=== PATIENT | male | born 1960 | race Caucasian/White ===

== ENCOUNTER 2020-12-15 10:45 | Outpatient (NON) | payer BC, SELFPAY ==
[2020-12-15 22:05] LABS: SARS-CoV-2 RNA PCR Negative
== END 2020-12-15 10:46 ==
PROVIDERS: PCP Internal Medicine; Visit Provider Internal Medicine
DX: Z20.822 Contact with and (suspected) exposure to COVID-19 (principal); R68.89 Other general symptoms and signs
CPT/HCPCS: C9803; U0003; U0005

== ENCOUNTER 2023-03-23 16:27 | Outpatient (CLI) | payer BC, SELFPAY ==
--- NOTE | ~2023-03-23 | XR_ITS ---
AP and oblique views of the bilateral ribs, and PA and lateral chest radiographs Clinical History: Pain Findings: No rib fracture is seen. Osseous alignment is anatomic.. Suspected COPD. Minimal blunting o f right costophrenic angle noted. Cardiomediastinal contour is within normal limits. Soft tissues are unremarkable. Impression: No rib fracture is seen. Suspected COPD. Minimal blunting of the right costophrenic angle. This could be chronic in nature versus minimal righ t pleural effusion. Reviewed, dictated and finalized at location . Impression: No rib fracture is seen. Suspected COPD. Minimal blunting of the right costophrenic angle. This could be chronic in natu re versus minimal right pleural effusion.
--- NOTE | ~2023-03-23 | XR_ITS ---
Thoracic spine: Clinical Indication: Back pain AP and lateral views were performed. No fracture is seen. There is normal alignment of the vertebrae. The intervertebral disc spaces appe ar normal. Paravertebral soft tissues appear normal. Impression: No significant abnormalities noted. Reviewed, dictated and finalized at [facility]. Impression: No significant abnormalities noted.
== END 2023-03-23 16:28 | disposition home or self-care (01) ==
LOC: ANHIMG 16:32
PROVIDERS: PCP Internal Medicine; Visit Provider Internal Medicine
DX: R07.81 Pleurodynia (principal); M54.9 Dorsalgia, unspecified
CPT/HCPCS: 71046; 71110; 72070

== ENCOUNTER 2023-03-31 06:43 | Outpatient (CLI) | payer BC, SELFPAY ==
--- NOTE | ~2023-03-31 | CT_ITS ---
CT of the Abdomen and Pelvis: Indication: Abdominal pain Technique: 2.5 mm axial scans were obtained through the abdomen and pelvis following intravenous adm inistration of 100 cc of Omnipaque 350. Dose reduction technique was used on this scan by utilizing a utomated exposure control and iterative reconstruction technique. The dose-length product (DLP) was 4 13.25 mGy-cm. Findings: Scans through the lung bases demonstrate small bilateral pleural effusions, right greater than left.. The liver, spleen, pancreas, gallbladder, adrenals and kidneys are within normal limits. No evidence of aortic aneurysm. There is extensive retroperitoneal/peripancreatic and central mesenteric lymphad enopathy. There is an enlarged lymph node along the right side of the distal thoracic aorta, measurin g 2 cm in diameter. There is mild diffuse mesenteric edema. No bowel obstruction or bowel wall thickening. There is no ev idence to suggest acute appendicitis. Images through the pelvis were performed. Probable mild urinary bladder wall thickening. Prostate gla nd is enlarged. No ascites. Impression: Extensive lymphadenopathy, predominantly in the retroperitoneal/para-aortic regions and central mesen lobo, highly suspicious for lymphoma. Tissue sampling and appropriate additional workup recommended. Small bilateral pleural effusions, right greater than left. Suspected urinary bladder wall thickening. Correlate for cystitis. Enlarged prostate gland. Reviewed, dictated and finalized at location . Impression: Extensive lymphadenopathy, predominantly in the retroperitoneal/para-aortic reg ions and central mesentery, highly suspicious for lymphoma. Tissue sampling and appropriate additional workup recommended. Small bilateral pleural effusions, right greater than left. Suspected urinary bladder wall thickening. Correlate for cystitis. Enlarged prostate gland.
== END 2023-03-31 06:44 | disposition home or self-care (01) ==
PROVIDERS: PCP Internal Medicine; Visit Provider Internal Medicine
DX: R10.9 Unspecified abdominal pain (principal); R59.1 Generalized enlarged lymph nodes; J90 Pleural effusion, not elsewhere classified; N40.0 Benign prostatic hyperplasia without lower urinary tract symptoms
CPT/HCPCS: 74177; Q9967

== ENCOUNTER 2023-04-13 02:05 | Outpatient (CLI) | payer BC, SELFPAY ==
[2023-04-08 12:53] VITALS: BMI 22.6
--- NOTE | 2023-04-11 11:41 | PC.NURSE ---
Pre Radiology instructions Report to the outpatient day [facility] on date 0900 at time 04/13/23 for procedure Time: 1100 YOU MAY BE MONITORED AT HOSPITAL FOR UP TO 4 HOURS AFTER YOUR PROCEDURE. A visitor will be allowed to accompany the patient into the hospital. You and your visitor will be asked to self-screen and do not enter if you have any COVID symptoms. A mask is OPTIONAL within the hospital. Patients are to have no food or drink 6 hours prior to procedure time Driving will be restricted after the procedure, you must have a person to drive you home. Labs will be drawn in preop area and once reviewed, you will be taken to radiology area for procedure. When the procedure is completed, you will be taken to outpatient where you will be monitored for several hours. You may have one visitor in this area. Other than holding anti-coagulants, patient may take other medication(s) as scheduled. Prior to your appointment date patients are instructed to hold anti-coagulants after discussing with ordering provider to stop. If unable to discontinue anti-coagulants please notify radiologist. ? No aspirin or warfarin (Coumadin) for 7 days prior to the procedure. ? No clopidogrel (Plavix), ticagrelor (Brilinta), prasugrel (Effient) or dabigatran (Pradaxa) for 5 days prior to the procedure. ? No rivaroxaban (Xarelto), apixaban (Eliquis), dipyridamole (Aggrenox or Persantine) or cilostazol (Pletal) for 2 days prior to the procedure. Medications to discontinue per physician: ___NONE Date to take last dose: Please leave all valuables, including medications, at home the day of procedure. The hospital will not accept responsibility for valuables. Wear comfortable, loose fitting clothing.? Follow any additional instructions given to you from ordering provider. Telephone instructions given toPATIENT_and asked if any additional questions and then verbalized understanding. Patient advised to call scheduling provider office or registration scheduling [phone] if any additional questions.
[2023-04-13] VITALS (9 sets, daily range): BP systolic 118–151; BP diastolic 64–73; PULSE 81–103; RESP 16; TEMP 36.6; O2SAT 97–98
--- NOTE | ~2023-04-13 | CT_ITS ---
EXAMINATION: CT biopsy lymph node DATE: 04/13/2023 11:50 INDICATION: Retroperitoneal lymphadenopathy TECHNIQUE: The procedure including the risks and benefits was discussed with the patient. Risks discu ssed included bleeding, infection and allergic reaction. The patient understood the risks and agreed to proceed. Following the auto seat cover installer CT 10 mL Omnipaque-350 was administered by IV for opacification of th e ureters on subsequent imaging. The skin overlying the left lumbar paraspinal region was prepped and draped in usual sterile fashion. Anesthetic was administered with 1% lidocaine subcutaneously. A 1 6 gauge outer needle was advanced under CT guidance to the larger left para-aortic lymph nodes of int erest. An 18 gauge core biopsy needle was then advanced into the lesion. 10 core biopsy specimens wer e obtained, 6 placed in RPMI media and 4 in formalin. The outer needle was removed and the entry site was cleaned and dressed. There were no immediate complications. The dose-length product was 279.74 mGy-cm. FINDINGS: CT images demonstrate the outer needle tip at the posterior margin of a left para-aortic ly mph node which measures up to 2.7 cm in maximal short axis diameter. IMPRESSION: 1. Successful CT-guided biopsy of an enlarged right para-aortic lymph node which is concerning for ei ther lymphoma or metastatic disease. Reviewed, dictated and finalized at location A. IMPRESSION: 1. Successful CT-guided biopsy of an enlarged right para-aortic lymph node whic h is concerning for either lymphoma or metastatic disease.
[2023-04-13 10:08] LABS: Prothrombin Time 14.1 Seconds (11.1-14.7)
--- NOTE | 2023-04-13 12:33 | SUR.PHASEII ---
PATIENT GIVEN A.J. AND WATER. OKAY PER DR. DESAI.
--- NOTE | 2023-04-13 14:42 | SUR.PHASEII ---
PATIENT DENIES PAIN AT BIOPSY SITE; ASKING TO EAT SOMETHING SOLID. OKAY'S PER DR. DESAI.
--- NOTE | 2023-04-13 15:44 | SUR.PHASEII ---
DR. DESAI CALLED PER HIS REQUEST TO TALK TO PATIENT BEFORE LEAVING.
== END 2023-04-13 15:35 | disposition home or self-care (01) ==
PROVIDERS: PCP Internal Medicine; Visit Provider Radiology Diagnostic Radiology
PROC: (CPT 77012; principal; 2023-04-13 11:00)
DX: R59.1 Generalized enlarged lymph nodes (principal)
CPT/HCPCS: 36415; 38505; 77012; 85610; 88108; 88184; 88305; 88341; 88342; 88365; Q9967

== ENCOUNTER 2023-05-03 10:44 | Outpatient (CLI) | payer BC, SELFPAY ==
--- NOTE | ~2023-05-03 | PE_ITS ---
EXAMINATION: PET skull to mid thigh DATE: 05/03/2023 13:07 INDICATION: B-cell lymphoma of intra-abdominal lymph nodes. TECHNIQUE: Blood glucose level was 99 mg/dL. 10.238 mCi of 18-fluorodeoxyglucose (18-FDG) was adminis tered i.v. Low dose computed tomography (CT) images were acquired from the base of the brain to the p roximal thighs for attenuation correction and anatomic localization. Automated exposure control was e mployed. Dose-length product (DLP) was 545 mGy-cm. Positron emission tomography (PET) images were acq uired in the same distribution. COMPARISON: CT abdomen and pelvis 03/31/2023 FINDINGS: Head/neck: There is increased activity in the left posterior skull base without abnormal CT correlate . There is increased activity in normal sized bilateral internal jugular and spinal accessory lymph n odes. Chest: There are moderate-sized pleural effusions, right worse than left. There is mild scarring at t he lung apices. There is dependent atelectasis bilaterally. The heart size is normal. There is a smal l pericardial effusion. There is widespread increased activity involving normal sized mediastinal, bi lateral internal mammary, bilateral axillary, right hilar, paraspinal, and subcostal lymph nodes. The re is an enlarged paraesophageal lymph node with increased activity. Abdomen/pelvis/proximal thighs: The liver is normal. The gallbladder is distended, which may secondar y to fasting. The spleen is normal in size without increased activity. The pancreas, adrenal glands, and kidneys are normal. There are no dilated loops of bowel. There is a moderate volume of ascites. T he prostate is moderately enlarged. There are enlarged retrocrural, gastrohepatic, periportal, perice liac, mesenteric, aortocaval, and left para-aortic lymph nodes with increased activity. For example, a 3.8 x 2.8 cm left para-aortic node demonstrates maximum SUV of 24.7. There are normal sized pelvic lymph nodes with increased activity. There is increased activity in right acetabulum without abnormal CT correlate. There is focal increased activity in left sacrum without abnormal CT correlate. There is increased activity in L4 vertebral body without abnormal CT correlate. There is increased activity in L1 vertebral body without abnormal CT correlate. IMPRESSION: 1. Lymphadenopathy of the neck, chest, abdomen, and pelvis with increased activity and scattered bone lesions with increased activity, consistent with lymphoma. 2. Moderate-sized pleural effusions. 3. Small pericardial effusion. 4. Moderate volume of ascites. Reviewed, dictated and finalized at location A. IMPRESSION: 1. Lymphadenopathy of the neck, chest, abdomen, and pelvis with increased activ ity and scattered bone lesions with increased activity, consistent with lymphom a. 2. Moderate-sized pleural effusions. 3. Small pericardial effusion. 4. Moderate volume of ascites.
[2023-05-03 12:18] LABS: Glucose Point of Care 99 mg/dl (65-105)
== END 2023-05-03 10:45 | disposition home or self-care (01) ==
PROVIDERS: PCP Internal Medicine; Visit Provider Internal Medicine Hematology & Oncology
DX: C85.13 Unspecified B-cell lymphoma, intra-abdominal lymph nodes (principal); I31.39 Other pericardial effusion (noninflammatory); J90 Pleural effusion, not elsewhere classified
CPT/HCPCS: 78815; A9552

== ENCOUNTER 2023-05-20 01:07 | Day surgery (SDC) | payer BC, SELFPAY ==
[2023-05-16 09:37] VITALS: BMI 23.1
--- NOTE | 2023-05-16 09:41 | PC.NURSE ---
Report to the Outpatient Waiting Room, entrance under the green pavilion located off [facility], at time 1230 on date 05/20/23. Planned Procedure Time: 1430. Time changes happen often and if your time is changed the preop area will call you the afternoon before. - You and your visitor will be asked to self-screen and do not enter if you have any COVID symptoms. - A mask is optional within the hospital at this time. Patients may have clear liquids (water, carbonated beverages, clear teas, apple juice) until 3 hours prior to surgery with a maximum of 20 ounces. - No food from midnight until time of surgery Take the following medications with a SIP of water the morning of surgery: VENLAFAXINE, TYLENOL OR TRAMADOL IF NEEDED DO NOT STOP ANY OF YOUR OTHER PRESCRIPTION MEDICATIONS PRIOR TO SURGERY ?EXCEPT THE FOLLOWING Medications to discontinue per physician: VITAMINS Date to take last dose: 05/16/23 Please no make-up, nail setswana, hairspray, perfume, deodorant, or body powder the day of surgery. No jewelry (including any body piercings) or valuables the day of surgery, leave them at home. Please take a shower or bath the night before, or the morning of, surgery with an antibacterial soap. Wear comfortable, loose fitting clothing. - Jewelry must be removed prior to entering the operating room. Rings and piercings that are not removed may be cut off. - The hospital will not accept responsibility for valuables. - Please leave all valuables, including medications, at home the day of surgery. If you are going home after surgery, a licensed oil transport driver must drive you home. - NO public transportation without another adult if you receive anesthesia. - We recommend that an adult stay with you for 24 hours following discharge. - We also recommend that you do not drive, make important decision, drink alcoholic beverages, or take any drugs that were not prescribed by your health care provider for at least 24 hours after your discharge time. Follow any additional instructions given to you from your surgeon. If you or anyone in your household have experienced Covid symptoms in the past week, please notify your surgeon or the nurse liaison at the phone number below for possible testing. Telephone instructions given to PT - MAYURI HUGHES and asked if any additional questions and then verbalized understanding. Patient advised to call surgeon office or pre surgery nurse liaison [phone] if any additional questions.
[2023-05-20] VITALS (11 sets, daily range): BP systolic 105–147; BP diastolic 69–82; PULSE 86–109; RESP 10–27; TEMP 36.6–36.7; O2SAT 90–97
[2023-05-20] MEDS: LACTATED RINGERS 1,000 ML 30 ML IV CONT ×2 (10:30→12:46)
--- NOTE | 2023-05-20 11:02 | WPDANESEPPF ---
Anes - Initial Pre Proc Eval Procedure: Operation Date: 05/20/23 12:00 Proposed Procedures p Excisional Biopsy Left Supraclavicular Lymph Node, Possible Right Axillary Lymph Node Biopsy - Kavon Gonzalez DO Date/Time: 05/20/23 11:02 Surgeon: Kavon Gonzalez DO Pre Op Diagnosis: lymphadenopathy Patient Data Age: 63 Gender: M Height: 1.88 m Weight: 79.9 kg Last Vital Signs Temp 36.6 C 05/20/23 10:23 Pulse 109 H 05/20/23 10:23 Resp 18 05/20/23 10:23 BP 147/75 H 05/20/23 10:23 Pulse Ox 97 05/20/23 10:23 O2 Del Method Room Air 05/20/23 10:23 Allergies Allergy/AdvReac Type Severity Reaction Status Date / Time No Known Allergies Allergy Verified 05/20/23 10:13 Home Medications Medication Instructions Recorded Confirmed Type multivitamin (Daily Multi-Vitamin 1 tablet PO DAILY 10/25/22 05/17/23 History tablet) sildenafil (pulm.hypertension) 20 See Rx Instructions .Route 01/14/23 05/17/23 Rx mg tablet .COMPLEX #90 tabs venlafaxine 37.5 mg See Rx Instructions .Route 03/14/23 05/17/23 Rx capsule,extended release 24 hr .COMPLEX #90 caps acetaminophen 500 mg capsule 500 mg PO Q6H 03/23/23 05/17/23 History tramadol 50 mg tablet 50 mg PO BID PRN pain #60 tabs 04/29/23 05/17/23 Rx Patient hx anesthesia problems: none Family hx anesthesia problems: none Results Review: All pre-operative results and documents have been reviewed as part of the pre-operative evaluation. [facility] Past Medical History Medical History Anxiety Vitreous detachment 2021 Surgical History Surgical History H/O rhinoplasty 1977 History of appendectomy 1971 Family History Family History Father Cerebrovascular accident, Onset Age: 89 Patient's father is , Onset Age: 89 Mother Cerebrovascular accident, Onset Age: 87 Patient's mother is , Onset Age: 87 Hypertension Sibling Depression Social History Social History Smoking status: Never smoker Second hand tobacco smoke exposure: No Alcohol intake: never Alcohol use details: 2 PER MONTH Substance use: never Substance use type: does not use Lack of Transportation: No Lack of Food: Never True Current Housing: I Have Housing Concerned About Future Housing: No Difficulty Paying Gas/Electric Bills: No Difficulty Paying for Meds: No Currently Unemployed: No Education: Master's Degree or Higher Difficulty w/ Childcare or Family Care: No Living arrangements: with family Spiritual care concerns: No Anes - Eval Final PreProcedure Day of Procedure 05/20/23 11:02 Patient weight: normal Heart: regular rate and rhythm Lungs: clear to auscultation and normal air movement Airway: Mallampati scale class II Neurological: alert and oriented Last oral intake: >/= 8 hours ASA classification: II Emergent: no Anesthetic plan: proceed Anesthesia type and monitoring: general GIVS and standard monitoring Results Review: All pre-operative results and documents have been reviewed as part of the pre-operative evaluation. Informed Consent: The patient's anesthetic plan and its attendant risks and benefits were discussed with the patient/family/POA. Questions were solicited and answers provided to the satisfaction of the patient/family/POA.
--- NOTE | 2023-05-20 11:39 | WPDHPUPDATE1 ---
History and Physical Update Update Date/Time: 05/20/23 11:39 History and Physical has been reviewed, including an updated exam of the patient. There are NO changes in the patient's condition. Risks, benefits, and alternatives have been discussed and questions answered. Patient agrees to proceed with procedure.
[2023-05-20] MEDS: ceFAZolin 2 GM/D5W 50 ML 2 GM/50 ML BAG IVPB (11:57)
[2023-05-20] MEDS: LIDO 1%/EPINEPHRINE 1:100,000 50 ML VIAL 20 ML INFILTRATE (12:26)
--- NOTE | 2023-05-20 12:32 | W.PM.PROC2 ---
Procedure Note - Detailed Date of Procedure 05/20/23 Pre-op Diagnosis lymphadenopathy Post-op Diagnosis Same Procedure Performed Excisional biopsy of left supraclavicular lymph node Surgeon Kavon Gonzalez, DO Anesthesia General and Local (1% lidocaine with epinephrine) Indications This is a 63-year-old man who presents with multiple findings of lymphadenopathy. He has been experiencing abdominal pain and swelling with fatigue and night sweats. CT showed evidence of dina aortic lymphadenopathy as well as lymphadenopathy and multiple other regions. He underwent CT-guided needle biopsy and findings were inconclusive. PET scan showed FDG avid nodes in the left supraclavicular region as well as right axillary region. The lymph node still appeared small but there appeared to be a palpable lymph node in the left supraclavicular region. Discussions were made with the patient about treatment options and decision was made to proceed with excisional biopsy of left supraclavicular lymph node. Findings Excisional biopsy of left supraclavicular lymph node was performed. There was a small palpable lymph node measuring about 5 mm in size. I dissected around this region and removed the supraclavicular adipose tissue in this region to remove this palpable lymph node as well as any other lymph nodes within the close vicinity. The specimen was sent to the lab for pathology. No other abnormalities were noted. Description of Procedure Procedure as well as risks, benefits, and alternatives were discussed with the patient. Written consent was obtained and placed in chart prior to procedure. Patient was brought back to surgical suite. He was placed supine on operating table. Time-out was done to confirm patient and procedure. IV sedation was then administered by the anesthesia department. He was placed in slight reverse Trendelenburg position. His neck and chest area was prepped and draped in sterile fashion using chlorhexidine prep. 1% lidocaine with epinephrine was infiltrated locally around the left supraclavicular region. A 3 cm transverse incision was then made directly over this region using a 15 blade scalpel. Electrocautery was used for hemostasis and for dissection through the subcutaneous tissue. The platysma was dissected with electrocautery and the deep supraclavicular space was entered. The tissue within the space was carefully dissected free using electrocautery. Care was taken to avoid transecting any nerves around this region. The adipose tissue within this region was excised carefully with electrocautery. He was then sent to the lab for pathology. Careful palpation was made around the region and no other palpable abnormalities or enlarged lymph nodes were identified. The wound was then irrigated with sterile saline. Hemostasis appeared adequate. The platysma was then reapproximated using 3-0 Vicryl simple interrupted sutures. The skin was then approximated using 4-0 Monocryl running subcuticular suture. Exofin glue was then applied on top. The patient was then awakened from anesthesia and transferred to recovery. Estimated Blood Loss 2 Pathology Yes (Left supraclavicular lymph node) Complications No immediate complications Condition Stable Disposition Same day [facility] Billing Surgery - Charge Forward: Surgery Billing
== END 2023-05-20 15:10 | disposition home or self-care (01) ==
PROVIDERS: PCP Internal Medicine; Visit Provider Surgery
PROC: (CPT 38510; principal; 2023-05-20 12:00)
DX: C83.31 Diffuse large B-cell lymphoma, lymph nodes of head, face, and neck (principal); F41.9 Anxiety disorder, unspecified
CPT/HCPCS: 38510; 88108; 88184; 88185; 88305; 88333; 88341; 88342; J0690; J1100; J2250; J2405; J2704; J3010; J7120

== ENCOUNTER 2023-05-25 13:16 | Inpatient (IN) | payer BC, SELFPAY ==
[2023-05-25] VITALS (14 sets, daily range): BP systolic 132–158; BP diastolic 63–85; PULSE 73–104; RESP 16; TEMP 36.2–36.7; O2SAT 92–95
--- NOTE | ~2023-05-25 | XR_ITS ---
EXAMINATION: XR chest 1V DATE: 05/26/2023 16:06 INDICATION: Lymphoma. TECHNIQUE: A single frontal view of the chest was obtained. COMPARISON: Chest 2 views 03/23/2023, thoracic spine CT 05/25/2023 FINDINGS: There are moderate-sized pleural effusions. There are dependent airspace opacities, likely atelectasis. No pneumothorax. The heart size is normal. IMPRESSION: 1. Moderate-sized pleural effusions, right worse than left status post right-sided thoracentesis. Reviewed, dictated and finalized at location A. IMPRESSION: 1. Moderate-sized pleural effusions, right worse than left status post right-si ded thoracentesis.
--- NOTE | ~2023-05-25 | XR_ITS ---
EXAMINATION: [id number]_CR DATE: 05/28/2023 10:05 INDICATION: Left pleural effusion status post thoracentesis TECHNIQUE: A single frontal view of the chest was obtained on 2 radiographs. COMPARISON: Chest single view 05/26/2023 FINDINGS: There is a moderate-sized right pleural effusion. There is mild atelectasis in left midlung zone. No pneumothorax. The heart size is normal. IMPRESSION: 1. Worsened moderate-sized right pleural effusion. 2. Mild atelectasis in left midlung zone. Reviewed, dictated and finalized at location A.
--- NOTE | ~2023-05-25 | US_ITS ---
EXAMINATION: US thoracentesis DATE: 05/26/2023 16:07 INDICATION: pleural effusion TECHNIQUE: The procedure and its risks, benefits, and alternatives were discussed with the patient. P otential risks discussed included bleeding, infection, and pneumothorax. The patient understood the r isks and agreed to proceed. The skin was prepped and draped in sterile fashion. 1% lidocaine was used for local anesthesia. Under ultrasound guidance, a 5 Fr catheter with trochar was advanced into the right pleural effusion. Fluid was aspirated. The catheter was removed, and a dressing was applied. Th ere were no immediate complications. FINDINGS: Ultrasound images demonstrate a right pleural effusion and the catheter within the fluid. IMPRESSION: 1. Successful ultrasound-guided thoracentesis yielding 1000 mL of opaque, cream-colored fluid. Reviewed, dictated and finalized at location A. IMPRESSION: 1. Successful ultrasound-guided thoracentesis yielding 1000 mL of opaque, crea m-colored fluid.
--- NOTE | ~2023-05-25 | CT_ITS ---
EXAMINATION: CT thoracic lumbar wo con DATE: 05/25/2023 14:58 INDICATION: Back pain TECHNIQUE: Computed tomography (CT) of the thoracic and lumbar spine was performed without intravenou s contrast. Automated exposure control and iterative reconstruction technique were employed. Exam dos e: 1079.43 mGy-cm total exam DLP. COMPARISON: 03/23/2023 thoracic spine FINDINGS: Mild anterior wedging of T8, likely developmental or due to old mild compression fracture. There is permeative lytic change of the first lumbar vertebral body. There is extensive lytic change of the fourth lumbar vertebral body with pathologic burst fracture. MR examination and/or bone scan may be helpful to evaluate for additional disease. In this age range, metastatic disease and multiple myeloma are considerations. There is a history of lymphoma. Prominent Schmorl's node at inferior L3. There is severe degenerative disc disease at L5-S1. No evidence of primary spinal stenosis. Incidental note or large pleural effusions, right greater than left, in addition to bilateral lower l obe atelectasis. There is retrocrural and periaortic and aortocaval lymphadenopathy. Free fluid is noted in Morison's pouch and the pelvis.. IMPRESSION: Permeative lytic destruction of L1 vertebral body More extensive permeative lytic destruction and pathologic burst fracture of L4; differential diagnos is includes metastatic disease, multiple myeloma, lymphoma Probable chronic T8 mild anterior wedging Periaortic, aortocaval, retrocrural lymphadenopathy Large bilateral pleural effusions, mild ascites Bilateral lower lobe atelectasis Reviewed, dictated and finalized at Location A. Reviewed, dictated and finalized at location A. IMPRESSION: Permeative lytic destruction of L1 vertebral body More extensive permeative lytic destruction and pathologic burst fracture of L4 ; differential diagnosis includes metastatic disease, multiple myeloma, lymphom a Probable chronic T8 mild anterior wedging Periaortic, aortocaval, retrocrural lymphadenopathy Large bilateral pleural effusions, mild ascites Bilateral lower lobe atelectasis
--- NOTE | ~2023-05-25 | MR_ITS ---
EXAMINATION: MR lumbar spine wo/w con DATE: 05/27/2023 10:01 INDICATION: L4 lumbar fracture TECHNIQUE: Magnetic resonance imaging (MRI) of the lumbar spine was performed without and with 15 mL Multihance intravenous contrast. Sequences included sagittal T2-weighted FSE, sagittal T2-weighted FS FSE, and sagittal and axial T1-weighted FSE. Postcontrast sequences included axial T2-weighted FSE, sagittal T1-weighted FSE, and axial and sagittal T1-weighted FS FSE. COMPARISON: CT dated 05/25/2023 and PET/CT dated 05/03/2023 FINDINGS: 2-3 mm retrolisthesis L5 on S1.. Enhancing marrow replacing processes consistent with lymphoma involv ing the majority the L1 and L4 vertebral bodies. Again seen is an associated pathologic burst fractur e at L4 with depression of the posterior aspect of both the superior and inferior endplates for a tot al of 60% localized vertebral body height loss at this location. There is approximately 7 mm retropul farzana along the posterior wall which is bowed posteriorly and with loss of the well-defined low signal intensity cortical margin. There is also 5 mm retropulsion of the posterior inferior rim of the vert ebral body with respect to L5. Additional enhancing marrow replacement with extraosseous extension at the left transverse process of L2 also consistent with lymphoma. Severe disc height loss at L5-S1. I ncreased T1 signal and enhancement associated with a prominent Schmorl's node along the inferior endp late of L3. The conus medullaris terminates at L2. There is normal signal in the caudal spinal cord. No abnormally enhancing intrathecal lesions. Bulky enhancing para-aortic and paracaval retroperitonea l lymphadenopathy. The following disc levels are specifically discussed: T12-L1: The disc does not extend beyond the endplate margin. There is mild bilateral facet joint oste oarthritis. There is no neural foraminal stenosis. There is no central canal stenosis. L1-L2: The disc does not extend beyond the endplate margin. There is minimal bilateral facet joint os teoarthritis. There is no neural foraminal stenosis. There is no central canal stenosis. L2-L3: Mild left foraminal zone disc protrusion. There is mild bilateral facet joint osteoarthritis. There is altered left neural foraminal stenosis. There is no central canal stenosis. L3-L4: Small bilateral foraminal zone disc protrusions. There is mild bilateral facet joint osteoarth ritis. There is mild bilateral neural foraminal stenosis. There is no central canal stenosis. There i s however mild central canal stenosis at level of the midportion of the L4 vertebral body resulting f rom the pathologic burst fracture with retropulsion. L4-L5: The disc does not extend beyond the more posterior L4 endplate margin. There is mild bilateral facet joint osteoarthritis. There is moderate bilateral neural foraminal stenosis. There is mild chris tral canal stenosis. L5-S1: Annular fissure and minimal disc bulge. There is moderate right and mild to moderate left face t joint osteoarthritis. There is mild right and mild to moderate left neural foraminal stenosis. Ther e is no central canal stenosis. IMPRESSION: 1. Enhancing marrow replacement consistent with lymphoma involving the majority of the L1 and L4 vert ebral bodies and the left transverse process of L2 with extraosseous extension. 2. L4 pathologic burst fracture was 7 mm retropulsion contributing to moderate bilateral neural murray inal and mild central canal stenosis. 3. Bulky retroperitoneal lymphadenopathy consistent with lymphoma. 4. Lumbar spondylosis with multilevel mild facet osteoarthritis and severe disc height loss and mild to moderate facet osteoarthritis at L5-S1. Reviewed, dictated and finalized at location B.
--- NOTE | ~2023-05-25 | US_ITS ---
EXAMINATION: US thoracentesis DATE: 05/28/2023 10:12 INDICATION: pleural effusion TECHNIQUE: The procedure and its risks, benefits, and alternatives were discussed with the patient. P otential risks discussed included bleeding, infection, and pneumothorax. The patient understood the r isks and agreed to proceed. The skin was prepped and draped in sterile fashion. 1% lidocaine was used for local anesthesia. Under ultrasound guidance, a 5 Fr catheter with trochar was advanced into the left pleural effusion. Fluid was aspirated. The catheter was removed, and a dressing was applied. The re were no immediate complications. FINDINGS: Ultrasound images demonstrate a left pleural effusion and the catheter within the fluid. IMPRESSION: 1. Successful ultrasound-guided thoracentesis yielding 1000 mL of opaque, cream-colored fluid. Reviewed, dictated and finalized at location A. IMPRESSION: 1. Successful ultrasound-guided thoracentesis yielding 1000 mL of opaque, crea m-colored fluid.
--- NOTE | 2023-05-25 14:27 | ED.BACK ---
HPI - Back Pain/Injury General Chief Complaint: Back Pain/Injury Stated Complaint: lower back pain/unable to ambulate Time Seen by Provider: 05/25/23 14:10 History of Present Illness HPI Narrative: 63-year-old male presented the emergency department for evaluation of back pain. Patient is currently in the process of being worked out for a suspected lymphoma and is seeing Dr Zuleta. Patient did have a previous needle biopsy and has had a lymph node biopsy on Tuesday. On Tuesday patient was bending over to tie shoes and felt a pop in his lower back. Patient reports increased pain with ambulation. Patient states he does have some intermittent numbness of his right lateral michel but denies any other numbness. Patient states his gait is weak and secondary to pain as well Related Data Home Medications Medication Instructions Recorded Confirmed multivitamin (Daily Multi-Vitamin 1 tablet PO DAILY 10/25/22 05/25/23 tablet) acetaminophen 500 mg capsule 500 mg PO Q6H 03/23/23 05/25/23 sildenafil (pulm.hypertension) 20 See Rx Instructions .Route 05/25/23 05/25/23 mg tablet .COMPLEX PRN Blood Pressure Allergies Allergy/AdvReac Type Severity Reaction Status Date / Time No Known Allergies Allergy Verified 05/25/23 13:17 Review of Systems Review of Systems: All systems reviewed & are unremarkable except as noted in HPI and below PMFSH Past Medical History Medical History Anxiety Vitreous detachment 2021 Surgical History Surgical History H/O rhinoplasty 1977 History of appendectomy 1971 Family History Family History Father Cerebrovascular accident, Onset Age: 89 Patient's father is , Onset Age: 89 Mother Cerebrovascular accident, Onset Age: 87 Patient's mother is , Onset Age: 87 Hypertension Sibling Depression Social History Social History Smoking status: Never smoker Second hand tobacco smoke exposure: No Alcohol intake: former Alcohol use details: 2 PER MONTH Substance use: never Substance use type: does not use Lack of Transportation: No Lack of Food: Never True Current Housing: I Have Housing Concerned About Future Housing: No Difficulty Paying Gas/Electric Bills: No Difficulty Paying for Meds: No Currently Unemployed: No Education: Master's Degree or Higher Difficulty w/ Childcare or Family Care: No Living arrangements: with family Spiritual care concerns: No Exam Narrative: APPEARANCE: Well appearing, no pain, no distress, well-nourished. HEAD: normocephalic, atraumatic. EYES: PERRLA/EOMI, conjunctivae clear. NOSE: Normal no drainage NECK: Supple. No adenopathy, no masses. RESPIRATORY: Airway patent, respirations nonlabored. Clear to auscultation bilaterally, no rales, rhonchi, wheezing. CARDIOVASCULAR: Regular rate and rhythm without murmurs rubs or gallops. ABDOMINAL: Soft, nontender, nondistended, normal bowel sounds MUSCULOSKELETAL: Lumbar tenderness to palpation NEURO: Decreased sensation over the right lateral michel SKIN: Warm, dry. Normal Color Course Course Emergency Course: 63-year-old presented to the ED for evaluation of lower back pain. Patient declined any medications for pain control at this time. Patient and family were updated on the plan for work-up including CT scan and basic labs. CT was concerning for lesions of L1 and L4 including a burst fracture of L4. I discussed the case with neurosurgery, Dr. Marin and she recommended an admission for inpatient MRI. I discussed case with the hospitalist and patient was accepted for admission. I updated the patient and family on the results of the CT and plan for admission for MRI. All questions and concerns were addressed and patient
[2023-05-25] MEDS: HYDROmorphone HCL INJ (*CRX) 1 MG/ML SYR IV PUSH (14:45)
[2023-05-25 15:02] LABS: Basophils Percent Auto 0.4 % (0.2-1.2); Eosinophils Absolute Auto 0.1 K/mm3 (0-0.3); Eosinophils Percent Auto 0.9 % (0-4.4); Hemoglobin 12.9 g/dL (14.0-18.0); Immature Granulocyte Absolute 0.03 K/mm3 (0.00-0.031); Immature Granulocyte Percent A 0.4 % (0-0.5); Lymphocytes Absolute Auto 0.49 K/mm3 (0.9-3.2); Lymphocytes Percent Auto 5.8 % (18.3-44.2); Mean Corpuscular HGB Conc 32.3 g/dl (32-36); Mean Corpuscular Volume 83.9 fl (80-100); Mean Platelet Volume 8.9 fl (7.4-10.4); Monocytes Absolute Auto 0.9 K/mm3 (0.1-0.6); Neutrophils Absolute Auto 6.9 K/mm3 (1.3-6.7); Neutrophils Percent Auto 81.5 % (45.5-73.1); Platelet Count Result 445 k/mm3 (150-375); Red Blood Count 4.77 M/mm3 (4.6-6.20); Red Cell Distribution Width 13.5 % (11.5-14.5); White Blood Count 8.5 K/mm3 (4.5-10.0)
[2023-05-25 15:05] LABS: Anion Gap 6 mmol/L (8-16); Blood Urea Nitrogen 26 mg/dL (9-20); Carbon Dioxide 30 mmol/L (22-30); Chloride 101 mmol/L (98-107); Estimated CRCL calculation 60 ml/min; Potassium 4.1 mmol/L (3.4-5.0); Sodium 137 mmol/L (137-145)
[2023-05-25 15:06] LABS: Alanine Aminotransferase 62 U/L (6-50); Albumin Level 3.3 g/dL (3.5-5.1); Alkaline Phosphatase 132 U/L (38-126); Aspartate Amino Transferase 84 U/L (17-59); Bilirubin,Total 0.6 mg/dL (0.2-1.3); Calcium 10.6 mg/dL (8.4-10.2); Estimated Glomerular Filt Rate 56; Glucose 98 mg/dL (65-110)
[2023-05-25 15:15] LABS: INR 1.2; Prothrombin Time 16.2 Seconds (11.1-14.7)
[2023-05-25 15:16] LABS: Partial Thromboplastin Time 39.1 SECONDS (22.3-36.8)
--- NOTE | 2023-05-25 18:29 | ADMGEN ---
This patient, Rickey Bruno, was admitted to 3 [facility] Surg Room 331-02. Patient/family oriented to hospital policies and general routines including ID bracelet, bed and alarms, visiting hours, pain management, procedures, bathroom and other care routines, personal items, smoking policy, room service/diet, and visiting hours. Information on how to activate the Rapid Response Team has been discussed. Patient/Family are encouraged to report perceived risks to care and to ask questions if they do not understand what they are told or what they should do.
[2023-05-25] MEDS: HYDROmorphone HCL INJ (*CRX) 1 MG/ML SYR 0.5 MG IV PUSH (18:49)
--- NOTE | 2023-05-25 22:12 | PM.IMHP ---
H&P: HPI History of Present Illness Date/Time: 05/25/23 19:30 Chief Complaint: Back pain. Narrative: This is a very pleasant 63-year-old male who has been quite healthy up until this point who presented to the emergency department via private vehicle from home for evaluation of back pain. The patient provides the following history. Towards the end of January he developed vague abdominal discomfort and low back pain which initially he thought was due to moving furniture. He saw his doctor on February 16 and at that time his exam was benign and management with expectant. His symptoms persisted and in fact worsened and he saw his doctor again on March [address] of the abdomen and pelvis was ordered which unfortunately showed extensive lymphadenopathy suspicious for lymphoma. He had a CT-guided periaortic lymph node biopsy on April 19 which was insufficient for flow cytometric analysis however pathology did show atypical lymphoid infiltrate suspicious for B-cell lymphoma. Last Tuesday he had several lymph nodes excised from the left supraclavicular region and we are still awaiting those results. The day after that procedure he bent over and reports hearing several pops in his low back followed by severe pain and weakness in the lower legs. He has been taking ibuprofen and acetaminophen at home without much relief. His activity is limited due to the pain and he has not been able to do much and in fact today he could hardly ambulate. CT of the thoracic and lumbar spine showed permeative lytic destruction of L1 and L4 vertebral bodies with pathologic burst fracture at L4, significant lymphadenopathy, and large bilateral pleural effusions. He is being admitted in this setting for pain control neurosurgery consultation. He has sweats but no fever. Appetite has been poor and he reports having lost quite a bit of muscle mass over the last couple of months. He denies chest and pleuritic pain. He is feeling short of breath with exertion and somewhat when lying flat. No urinary retention or bowel incontinence. He denies saddle anesthesia. No significant numbness of the lower extremities but he does have some paresthesias in a small patch of the left leg. Review of Systems Review of Systems: Twelve systems were reviewed and are negative except for as per HPI. [facility] Past Medical History Medical History (Updated 05/25/23 @ 22:27 by Eunice Townsend PA-C) Anxiety Vitreous detachment (2021) Surgical History Surgical History (Updated 05/25/23 @ 22:23 by Eunice Townsend PA-C) History of appendectomy (1971) History of rhinoplasty (1977) Family History Family History Father Cerebrovascular accident, Onset Age: 89 Patient's father is , Onset Age: 89 Mother Cerebrovascular accident, Onset Age: 87 Patient's mother is , Onset Age: 87 Hypertension Sibling Depression Social History Social History (Updated 05/25/23 @ 22:24 by Eunice Townsend PA-C) Social History: Surrogate medical decision maker: Racquel Bruno, spouse. Code status: Full code. Smoking status: Never smoker Second hand tobacco smoke exposure: No Alcohol intake: former Alcohol use details: 2 PER MONTH Substance use: never Substance use type: does not use Lack of Transportation: No Lack of Food: Never True Current Housing: I Have Housing Concerned About Future Housing: No Difficulty Paying Gas/Electric Bills: No Difficulty Paying for Meds: No Currently Unemployed: No Education: Master's Degree or Higher Difficulty w/ Childcare or Family Care: No Living arrangements: with family Additional living arrangements comments: , lives in [place] with spouse. 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 Spiritual care concerns: No Meds Home Medications and Allergies Home Medications Medication Instru
[2023-05-25] MEDS: HYDROcodone/acetaminophen (*CRX) 5-325 MG TABLET 1 TAB PO (22:26)
[2023-05-26] MEDS: HYDROmorphone HCL INJ (*CRX) 1 MG/ML SYR IV PUSH ×2 (01:30→14:27)
[2023-05-26 06:00] VITALS: BP 141/71; PULSE 84; RESP 18; TEMP 36.8; O2SAT 93
[2023-05-26 06:12] LABS: Hematocrit 38.7 % (42.0-52.0); Hemoglobin 12.4 g/dL (14.0-18.0); Mean Corpuscular Hemoglobin 27.3 pg (26-34); Mean Corpuscular Volume 85.1 fl (80-100); Mean Platelet Volume 8.6 fl (7.4-10.4); Platelet Count Result 397 k/mm3 (150-375); Red Blood Count 4.55 M/mm3 (4.6-6.20); Red Cell Distribution Width 13.7 % (11.5-14.5); White Blood Count 8.7 K/mm3 (4.5-10.0)
[2023-05-26] MEDS: HYDROcodone/acetaminophen (*CRX) 5-325 MG TABLET 1 TAB PO ×4 (06:13→23:15)
[2023-05-26 06:27] LABS: Alanine Aminotransferase 67 U/L (6-50); Albumin Level 3.1 g/dL (3.5-5.1); Alkaline Phosphatase 132 U/L (38-126); Anion Gap 2 mmol/L (8-16); Aspartate Amino Transferase 101 U/L (17-59); Bilirubin,Total 0.6 mg/dL (0.2-1.3); Blood Urea Nitrogen 25 mg/dL (9-20); Calcium 10.6 mg/dL (8.4-10.2); Carbon Dioxide 35 mmol/L (22-30); Chloride 101 mmol/L (98-107); Estimated CRCL calculation 60 ml/min; Estimated Glomerular Filt Rate 56; Glucose 93 mg/dL (65-110); Magnesium 1.9 mg/dL (1.6-2.3); Phosphorus 4.6 mg/dL (2.5-4.5); Potassium 4.5 mmol/L (3.4-5.0); Sodium 138 mmol/L (137-145)
[2023-05-26] MEDS: VENLAFAXINE HCL XR 37.5 MG CAP BY MOUTH (09:42)
[2023-05-26] MEDS: polyethylene glycoL 3350 17 GM POWD.PACK PO (09:42)
--- NOTE | 2023-05-26 09:42 | PM.IMPN ---
Progress Note: A&P Assessment and Plan (1) Burst fracture of lumbar vertebra: Code(s): S32.001A - Stable burst fracture of unspecified lumbar vertebra, initial encounter for closed fracture Status: Acute (2) Lymphoma: Code(s): C85.90 - Non-Hodgkin lymphoma, unspecified, unspecified site Status: Acute (3) Elevated LFTs: Code(s): R79.89 - Other specified abnormal findings of blood chemistry Status: Acute (4) Bilateral pleural effusion: Code(s): J90 - Pleural effusion, not elsewhere classified Status: Acute Plan Low back pain The patient presented to emergency department from home for evaluation of back pain as per HPI. Labs, imaging, EKG, and all reports were personally reviewed. CT of the thoracic and lumbar spine shows lytic lesions at L1 and L4 with a pathologic burst fracture of L4. Analgesics available as needed. Dr. Marin has been consulted and her input is greatly appreciated. Optimize pain management Suspected lymphoma Multiple side of lymph node enlargement Biopsy of left supraclavicular lymph node, reported pending Consult Heme-Onc operations for evaluation treatment Bilateral pleural effusion Unclear etiologies, possible due to malignancy CT shows large bilateral pleural effusions Consult carpet cleaning technician for evaluation and treatment he may benefit from therapeutic thoracentesis. LFTs are a bit elevated there is a small amount of ascites on CT, possibly related to the lymphoma Patient has epigastric pain and right upper quadrant pain No sign of SBP Subjective Date/time seen: 05/26/23 09:42 Interval history: I saw and examined the patient today. Patient still has low back pain, patient denies urinary fecal incontinence, patient is able to move all extremities Exam Narrative: GENERAL: Pleasant, in no acute distress. Well-nourished. - EYES: EOMI. Anicteric. - HENT: Moist mucous membranes. - LUNGS: Diminished breath some bilaterally, no wheezing, rhonchi, or rales. - CARDIOVASCULAR: Regular rate and rhythm. No murmur. No JVD. - ABDOMEN: Soft, non-tender and non-distended. No palpable masses. - EXTREMITIES: No edema. Peripheral pulses 2+. Non-tender. -neuromuscular examination: No focal neurological deficits. CN II-XII grossly intact. Low die attaching machine tender by percussion - PSYCHIATRIC: Awake, Alert and oriented x 3. Appropriate mood and affect. - SKIN: No rashes or lesions. Warm. - LYMPH: No cervical lymphadenopathy. Objective Data Vital Signs Vital Signs: Vital Signs - 24 hr 05/25/23 13:35 05/25/23 14:29 05/25/23 14:30 Temperature 97.1 F L Pulse Rate 104 H Respiratory Rate 16 Blood Pressure 158/81 H 135/84 Pulse Oximetry 95 95 93 Oxygen Delivery Room Air 05/25/23 14:31 05/25/23 14:32 05/25/23 15:21 Temperature Pulse Rate Respiratory Rate Blood Pressure 137/83 Pulse Oximetry 94 95 92 Oxygen Delivery 05/25/23 15:22 05/25/23 15:23 05/25/23 15:33 Temperature Pulse Rate Respiratory Rate Blood Pressure 137/85 Pulse Oximetry 92 93 92 Oxygen Delivery 05/25/23 15:45 05/25/23 15:46 05/25/23 17:31 Temperature Pulse Rate 73 Respiratory Rate Blood Pressure 148/82 H 139/73 Pulse Oximetry 94 93 93 Oxygen Delivery 05/25/23 19:04 05/25/23 20:00 05/25/23 22:00 Temperature 98.1 F 97.2 F L Pulse Rate 77 85 Respiratory Rate 16 16 Blood Pressure 153/82 H 132/63 Pulse Oximetry 95 93 Oxygen Delivery Room Air 05/26/23 06:00 Temperature 98.2 F Pulse Rate 84 Respiratory Rate 18 Blood Pressure 141/71 H Pulse Oximetry 93 Oxygen Delivery Intake/Output Intake/Output: Intake & Output 05/23/23 05/24/23 05/25/23 05/26/23 23:59 23:59 23:59 23:59 Intake Total 524 Output Total 725 Balance -201 Meds/Results Medications: Active Medications Generic Name Dose Route Start Last Admin Trade Name Freq PRN Reason Stop Dose Admin Acetaminophen 650 mg 0
--- NOTE | 2023-05-26 10:52 | WPDNEUROSGCN ---
Assessment and Plan Assessment and plan (1) Pathologic fracture of lumbar vertebra: Code(s): M84.48XA - Pathological fracture, other site, initial encounter for fracture Status: Acute (2) Lymphoma: Code(s): C85.90 - Non-Hodgkin lymphoma, unspecified, unspecified site Status: Acute Plan Mr. Bruno is a 63-year-old male with a recent diagnosis of likely who presents with several days severely worsened back pain. He is neurologically intact on physical exam with exception of slight paresthesias of his right lateral calf. CT lumbar spine shows tumor involvement of the L1 vertebral body and a pathologic burst fracture at L4 causing mild canal stenosis. I have called [employer] to fit him for a rigid brace. He should wear this when upright and mobilizing. He does not need to wear this when lying in bed unless it is more comfortable for him. I discussed yesterday with the ER physician and today with Dr. Diaz that may be from it beneficial to get an MRI lumbar spine without and with contrast to better evaluate the degree of stenosis. While I do not anticipate that he would need any surgical intervention for this, it may also provide additional information about a target for a biopsy site if another biopsy is warranted. I do see that the pathology from his biopsy last Tuesday has returned negative, although there are some studies still pending. Finally, the use of Decadron may be quite beneficial for his pain, although this would reduce the yield of another biopsy if needed. If he were to develop any more neurologic signs or symptoms in his legs in terms of radicular pain, weakness, or paresthesias, Decadron should be very effective in controlling the symptoms as well. Dr. Diaz will ultimately discuss steroid use with Dr. Zuleta. I will watch for the MRI to be completed. Consult date: 05/26/23 HPI: Rickey Bruno is a 63 year old male with recent diagnosis of suspected lymphoma who presented to the ER yesterday with severe back pain. Several months ago, he developed abdominal and back pain for which his PCP ordered imaging in March. This revealed extensive lymphadenopathy concerning for lymphoma. He has now had 2 biopsies, one of which was concerning for B-cell lymphoma, although further confirmation is needed prior to starting treatment. He most recently had an excisional lymph node biopsy performed this past Tuesday. On Tuesday, he was at home and started to bend over to tie his shoes when he felt multiple pops in his low back followed by severe lower back pain. He has had some pain radiating into the hips and had an episode of some paresthesias in the right lateral thigh. He has significant pain with walking and standing which limits his ability to mobilize. He currently denies any paresthesias in the legs, radicular pain down the legs, or bowel or bladder changes. Imaging performed in the ER yesterday showed a pathologic burst fracture at L4 for which Neurosurgery was consulted. In addition to the symptoms, he reports about 15 lb of weight loss in the last few months. Review of Systems Review of Systems: All systems reviewed & are unremarkable except as noted in HPI and below PMFSH Past Medical History Medical History (Updated 05/25/23 @ 22:27 by Eunice Townsend PA-C) Anxiety Vitreous detachment (2021) Surgical History Surgical History (Updated 05/25/23 @ 22:23 by Eunice Townsend PA-C) History of appendectomy (1971) History of rhinoplasty (1977) Family History Family History Father Cerebrovascular accident, Onset Age: 89 Patient's father is , Onset Age: 89 Mother Cerebrovascular accident, Onset Age: 87 Patient's mother is , Onset Age: 87 Hypertension Sibling Depression Social History Social History (Updated 05/25/23 @ 22:24 by Eunice Townsend PA-C) Social History: Surrogate
--- NOTE | 2023-05-26 11:19 | PCPTNOTE ---
Awaiting for back brace prior to initiating therapy. RN aware. Will follow.
[2023-05-26 12:05] VITALS: BMI 23.2
--- NOTE | 2023-05-26 12:55 | PDONCCN ---
HPI - Date of Consult Date/Time: 05/26/23 12:55 Requesting Physician: Roni Manzanares MD Primary Care Provider: Fam Dowling, DO - Consult Narrative Reason for consult: B-cell lymphoma Narrative: Rickey Bruno is a 63 year old male with recent left para-aortic lymph node biopsy done on April 13, 2023 came back positive for B-cell lymphoma. He previously had PET scan done on May 03 that showed lymphadenopathy in the neck chest abdomen and pelvis with increased activity in L4 and L1 vertebral body. Patient had excision all biopsy of the left supraclavicular lymph node done on May 20 and reports are pending. He came into the hospital with back pain. CT thoracic and lumbar spine was performed that showed permeative lytic destruction of L1 vertebral body and more extensive destruction of L4 burst fracture the. There was large bilateral pleural effusion and mild ascites. He is having some abdominal discomfort. Review of Systems - Review of Systems All systems reviewed & are unremarkable except as noted in [facility] and [facility] Medical History: Medical History (Last Updated 05/25/23 @ 22:23 by Eunice Townsend PA-C) Anxiety Vitreous detachment Onset Date: 2021 Surgical History: Surgical History (Last Updated 05/25/23 @ 22:23 by Eunice Townsend PA-C) History of appendectomy Onset Date: 1971 History of rhinoplasty Onset Date: 1977 Family History: Family History (Last Reviewed 05/25/23 @ 22:23 by Eunice Townsend PA-C) Father Cerebrovascular accident, Onset Age: 89 Patient's father is , Onset Age: 89 Mother Cerebrovascular accident, Onset Age: 87 Patient's mother is , Onset Age: 87 Hypertension Sibling Depression - Social History Social History: Social History (Last Updated 05/25/23 @ 22:24 by Eunice Townsend PA-C) Alcohol Use: Alcohol intake: former Alcohol use details: 2 PER MONTH Substance Use: Substance use: never Substance use type: does not use Others: Spiritual care concerns: No Living Arrangements: Living arrangements: with family Smoking Status: Smoking status: Never smoker Second hand tobacco smoke exposure: No Social Determinants of Health: Has the Lack of Transportation Kept You From Medical Appointments or From Getting Medications?: No Within the Past 12 Months, Were You Worried Whether Your Food Would Run Out Before You Got Money to Buy More?: Never True What is Your Housing Situation Today?: I Have Housing Are You Worried That in the Next 2 Months, You May Not Have Your Own Housing to Live In?: No Do You Have Trouble Paying Your Heating Or Electricity Bill?: No Do You Have Trouble Paying For Medicines?: No Are You Currently Unemployed and Looking for Work?: No Highest Level of Education Completed: Master's Degree or Higher Do You Have Trouble With Childcare or the Care of a Family Member?: No Exam - Vital Signs Vital Signs - 24 hr 05/25/23 13:35 05/25/23 14:29 05/25/23 14:30 Temperature 36.2 C L Pulse Rate 104 H Respiratory Rate 16 Blood Pressure 158/81 H 135/84 Pulse Oximetry 95 95 93 Oxygen Delivery Room Air 05/25/23 14:31 05/25/23 14:32 05/25/23 15:21 Temperature Pulse Rate Respiratory Rate Blood Pressure 137/83 Pulse Oximetry 94 95 92 Oxygen Delivery 05/25/23 15:22 05/25/23 15:23 05/25/23 15:33 Temperature Pulse Rate Respiratory Rate Blood Pressure 137/85 Pulse Oximetry 92 93 92 Oxygen Delivery 05/25/23 15:45 05/25/23 15:46 05/25/23 17:31 Temperature Pulse Rate 73 Respiratory Rate Blood Pressure 148/82 H 139/73 Pulse Oximetry 94 93 93 Oxygen Delivery 05/25/23 19:04 05/25/23 20:00 05/25/23 22:00 Temperature 36.7 C 36.2 C L Pulse Rate 77 85 Respiratory Rate 16 16 Blood Pressure 153/82 H 132/63 Pulse Oximetry 95 93 Oxygen Delivery [facility]
--- NOTE | 2023-05-26 13:08 | PC.NURSE ---
Pt is A&O 4 male. Pt has participated and contributed in plan of care. Pt was fitted for a brace by [employer]. Pt tolerated rolling well. Pt has orders to be evaluated by PT/OT now that brace has been placed. Pt was placed on bedpan, but unable to use. Pt continues to report pain in hips and lower back. Will continue to monitor pt.
--- NOTE | 2023-05-26 13:16 | PCOTNOTE ---
Pt currently awaiting delivery of spinal brace. Will see pt once brace has been fitted.
--- NOTE | 2023-05-26 13:25 | PM.CNPUL ---
Assessment and Plan Assessment and plan (1) Bilateral pleural effusion: Code(s): J90 - Pleural effusion, not elsewhere classified Status: Acute Assessment and Plan: Diagnostic Right thoracentesis; will expect 1 L to be removed for analysis and to relieve dyspnea; he has been short of breath 2-3 months; will send fluid for the usual labs and the large container for cytology. This is likely associated with his lymphoma. Removing it will be diagnostic, might be therapeutic with some relief until the fluid redistributes. Will order O2 for use at night. If he is here more than 1-2 days, he might benefit from having the left side tapped, too. Plan Thoracentesis on right pleural effusion; diagnostic studies ordered. Fluid will reaccumulate until cause is treated, the lymphoma, and he has ascites waiting to fill He has an incentive spirometer at home; wants to bring it in for him to use Q 2-4 hours to decrease atelectasis after the thoracentesis O2 with sleep 1 L/min; he is struggling to breathe at night, daytime saturation is 90-92%, so this is going to be lower at night. Maybe he can get a port placed while he is here. History of Present Illness History of Present Illness Consult date: 05/26/23 Requesting physician: Megan Diaz MD Chief complaint: large bilateral pleural effusions Narrative: patient was seen May 26 at 14:15; joined at the bedside shortly thereafter NEW : Rickey Bruno is a 63-year-old man with B-cell lymphoma admitted yesterday May 25 with pain management of new spine fractures. ..... who is admitted, has large pleural effusions. right > than Left. He was admitted yesterday with spine fractures, and the effusions were seen on imaging of the spine. He started having abdominal pain and low back pain in January, has lost muscle mass and gained fluid with his weight staying stable. He was able to walk 2 miles a day and perform strength training several times a week, now does not exercise. CT abdomen/pelvis = lymphadenopathy suggestive of lymphoma. He has had some biopsies, nothing that is definitively diagnostic yet. Last Rodrigo he had a left supraclavicular LN excisional biopsy. After the biopsy, he had sudden pain in his low back with bending over, and had thigh weakness with tingling in right lower leg, making it impossible to walk. CT of the thoracic and lumbar spine showed permeative lytic destruction of L1 and L4 vertebral bodies with pathologic burst fracture at L4, significant lymphadenopathy, and large bilateral pleural effusions. Review of Systems Review of Systems: No chest pain, no sweating, coughing or sputum. He is not hungry, has ascites. All systems reviewed & are unremarkable except as noted in HPI and below PMFSH Past Medical History Medical History (Updated 05/26/23 @ 13:03 by Wilner Zuleta MD) Anxiety Vitreous detachment (2021) Surgical History Surgical History (Updated 05/26/23 @ 13:03 by Wilner Zuleta MD) History of appendectomy (1971) History of rhinoplasty (1977) Family History Family History Father Cerebrovascular accident, Onset Age: 89 Patient's father is , Onset Age: 89 Mother Cerebrovascular accident, Onset Age: 87 Patient's mother is , Onset Age: 87 Hypertension Sibling Depression Social History Social History (Updated 05/25/23 @ 22:24 by Eunice Townsend PA-C) Social History: Surrogate medical decision maker: Racquel Bruno, spouse. Code status: Full code. Smoking status: Never smoker Second hand tobacco smoke exposure: No Alcohol intake: former Alcohol use details: 2 PER MONTH Substance use: never Substance use type: does not use Lack of Transportation: No Lack of Food: Never True Current Housing: I Have Housing Concerned About Future Housing: No Di
[2023-05-26 14:00] VITALS: BP 143/71; PULSE 92; RESP 20; TEMP 36.7; O2SAT 92
[2023-05-26 16:03] VITALS: BP 150/83; PULSE 86; O2SAT 93
[2023-05-26 16:04] VITALS: BP 144/84; PULSE 89; O2SAT 93
--- NOTE | 2023-05-26 16:51 | PCPTNOTE ---
On 05/26/23, the student, [Maria Antonia Gillette], provided care and completed [facility] documentation on this patient. I have reviewed the student's documentation and agree with the findings.
[2023-05-26 16:55] LABS: Appearance Pleural Fluid Hazy (Clear); Color Pleural Fluid Yellow (Colorless); Lymphocytes Pleural Fluid 73 %; Macrophages Pleural Fluid 3 %; Mesothelial Cells Pleural Flui 4 %; Monocytes Pleural Fluid 15 %; Neutrophils Pleural Fluid 5 % (0-25); Pleural fluid source Pleural fluid
[2023-05-26 16:59] LABS: Nucleated Cell Pleural Fluid 190 /uL (0-1000); RBC Pleural Fluid < 2000 /uL (0-0)
[2023-05-26 20:00] VITALS: PULSE 93; RESP 18; O2SAT 94
[2023-05-26 21:45] VITALS: BP 142/72; PULSE 93; RESP 18; TEMP 37.2; O2SAT 94
[2023-05-27] MEDS: HYDROmorphone HCL INJ (*CRX) 1 MG/ML SYR IV PUSH ×5 (00:40→17:58)
[2023-05-27] MEDS: HYDROcodone/acetaminophen (*CRX) 5-325 MG TABLET 1 TAB PO (03:46)
[2023-05-27 06:00] VITALS: BP 116/74; PULSE 88; RESP 18; TEMP 36.6; O2SAT 92
[2023-05-27 06:40] LABS: Lactate Dehydrogenase 865 U/L (120-246); Uric Acid 8.9 mg/dL (3.5-8.5)
[2023-05-27 07:27] LABS: pH Pleural Fluid > 7.500 (7.210-7.500)
[2023-05-27] MEDS: polyethylene glycoL 3350 17 GM POWD.PACK PO (08:26)
[2023-05-27 08:50] LABS: Basophils Percent Auto 0.3 % (0.2-1.2); Eosinophils Absolute Auto 0.1 K/mm3 (0-0.3); Eosinophils Percent Auto 1.2 % (0-4.4); Hematocrit 37.4 % (42.0-52.0); Hemoglobin 11.9 g/dL (14.0-18.0); Immature Granulocyte Absolute 0.04 K/mm3 (0.00-0.031); Immature Granulocyte Percent A 0.4 % (0-0.5); Lymphocytes Absolute Auto 0.77 K/mm3 (0.9-3.2); Lymphocytes Percent Auto 7.8 % (18.3-44.2); Mean Corpuscular HGB Conc 31.8 g/dl (32-36); Mean Corpuscular Hemoglobin 27.3 pg (26-34); Mean Corpuscular Volume 85.8 fl (80-100); Mean Platelet Volume 9.1 fl (7.4-10.4); Monocytes Absolute Auto 1.2 K/mm3 (0.1-0.6); Monocytes Percent Auto 12.5 % (2.6-8.5); Neutrophils Absolute Auto 7.6 K/mm3 (1.3-6.7); Neutrophils Percent Auto 77.8 % (45.5-73.1); Platelet Count Result 421 k/mm3 (150-375); Red Blood Count 4.36 M/mm3 (4.6-6.20); Red Cell Distribution Width 13.7 % (11.5-14.5); White Blood Count 9.8 K/mm3 (4.5-10.0)
[2023-05-27 08:54] LABS: Anion Gap 6 mmol/L (8-16); Blood Urea Nitrogen 28 mg/dL (9-20); Calcium 10.7 mg/dL (8.4-10.2); Carbon Dioxide 33 mmol/L (22-30); Chloride 100 mmol/L (98-107); Estimated CRCL calculation 60 ml/min; Estimated Glomerular Filt Rate 56; Glucose 97 mg/dL (65-110); Potassium 5.2 mmol/L (3.4-5.0); Sodium 139 mmol/L (137-145)
--- NOTE | 2023-05-27 11:44 | PCOTNOTE ---
Attempted to see Patient for OT treatment session at the ending of Physical therapy treatment due to Patient was supine in bed and his lunch had arrived. Patient refused to get out of bed at this time, stating he will eat in bed, there is no way I can sit in a chair, I'm in excruciating pain, I can not sit . I have no needs at this time and will attempt something at a later time if able .
[2023-05-27 14:00] VITALS: BP 119/73; PULSE 92; RESP 14; TEMP 36.7; O2SAT 93
--- NOTE | 2023-05-27 14:19 | PM.IMPN ---
Progress Note: A&P Assessment and Plan (1) Burst fracture of lumbar vertebra: Code(s): S32.001A - Stable burst fracture of unspecified lumbar vertebra, initial encounter for closed fracture Status: Acute (2) Lymphoma: Code(s): C85.90 - Non-Hodgkin lymphoma, unspecified, unspecified site Status: Acute (3) Elevated LFTs: Code(s): R79.89 - Other specified abnormal findings of blood chemistry Status: Acute (4) Bilateral pleural effusion: Code(s): J90 - Pleural effusion, not elsewhere classified Status: Acute Plan Low back pain The patient presented to emergency department from home for evaluation of back pain as per HPI. Labs, imaging, EKG, and all reports were personally reviewed. CT of the thoracic and lumbar spine shows lytic lesions at L1 and L4 with a pathologic burst fracture of L4. Analgesics available as needed. Dr. Marin has been consulted and her input is greatly appreciated. [facility] pain management MR reports 1. Enhancing marrow replacement consistent with lymphoma involving the majority of the L1 and L4 vertebral bodies and the left transverse process of L2 with extraosseous extension. 2. L4 pathologic burst fracture was 7 mm retropulsion contributing to moderate bilateral neural foraminal and mild central canal stenosis. 3. Bulky retroperitoneal lymphadenopathy consistent with lymphoma. 4. Lumbar spondylosis with multilevel mild facet osteoarthritis and severe disc height loss and mild to moderate facet osteoarthritis at L5-S1. Patient was able move to stretcher from bed by himself for MR Suspected lymphoma Multiple side of lymph node enlargement Biopsy of left supraclavicular lymph node, report pending Consult Heme-Onc for evaluation treatment, Bilateral pleural effusion Unclear etiologies, possible due to malignancy CT shows large bilateral pleural effusions Consult sales marketing manager for evaluation and treatment he may benefit from therapeutic thoracentesis. LFTs are a bit elevated there is a small amount of ascites on CT, possibly related to the lymphoma Patient has epigastric pain and right upper quadrant pain No sign of SBP Subjective Date/time seen: 05/27/23 14:19 Interval history: I saw and examined the patient today. Patient still has low back pain, pain is controlled with the cardiac medication. Patient denies urinary fecal incontinence, patient is able to move all extremities. Patient move himself from bed to stretcher for MRI study today Exam Narrative: GENERAL: Pleasant, in no acute distress. Well-nourished. - EYES: EOMI. Anicteric. - HENT: Moist mucous membranes. - LUNGS: Diminished breath some bilaterally, no wheezing, rhonchi, or rales. - CARDIOVASCULAR: Regular rate and rhythm. No murmur. No JVD. - ABDOMEN: Soft, non-tender and non-distended. No palpable masses. - EXTREMITIES: No edema. Peripheral pulses 2+. Non-tender. -neuromuscular examination: No focal neurological deficits. CN II-XII grossly intact. 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 Appropriate mood and affect. - SKIN: No rashes or lesions. Warm. - LYMPH: No cervical lymphadenopathy. Objective Data Vital Signs Vital Signs: Vital Signs - 24 hr 05/26/23 14:55 05/26/23 15:11 05/26/23 16:03 Temperature Pulse Rate 86 Respiratory Rate Blood Pressure 150/83 H Pulse Oximetry 93 Oxygen Delivery Room Air Room Air 05/26/23 16:04 05/26/23 21:45 05/26/23 20:00 Temperature 98.9 F Pulse Rate 89 93 93 Respiratory Rate 18 18 Blood Pressure 144/84 H 142/72 H Pulse Oximetry 93 94 94 Oxygen Delivery Room Air 05/27/23 06:00 05/27/23 08:00 05/27/23 14:00 Temperature 97.9 F 98.0 F Pulse Rate 88 92 Respiratory Rate 18 14 Blood Pressure 116/74 119/73 Pulse Oximetry 92 93 Oxygen Delivery Room Air Intake/Output Intake/Output: Intake & Output 05/24/23 05/25/23 05/26/23 05/27/23 23:59 23:59 2
--- NOTE | 2023-05-27 14:35 | PCOTNOTE ---
Attempted to see Patient again this date. Patient having increased pain and not up for therapy at this time. Patient verbalized, not today .
--- NOTE | 2023-05-27 16:56 | PM.PNPUL ---
Progress Note: A&P Assessment and Plan (1) Bilateral pleural effusion: Code(s): J90 - Pleural effusion, not elsewhere classified Status: Acute Assessment and Plan: He had 1 L removed yesterday from right side, left much better; pH >7.5, red blood cells& lymphocytic predominance consistent with lymphoma. He had a lot of relief from dyspnea. He asked about having the left side tapped tomorrow. . This may give him more relief while he waits to get the port and start chemo. He has been short of breath 2-3 months; he had order for O2 last night but RT did not give it. Plan * See if he can have LEFT thoracentesis tomorrow to relive dyspnea. Does not need labs on it other than pH. * He had an MRI today lumbar spine ordered by NeuroSurgery Dr Marin. * Will check [employer] tonight on room air, see if he can qualify for O2 with sleep. discussed with Dr Zuleta. I will not see the patient over the weekend. Please call if there are questions. Thank you. If he is discharged, he does not need out patient pulm follow up. Subjective Date/time seen: 05/27/23 16:56 Interval history: hospital follow up : Rickey Bruno is a 63-year-old man with B-cell lymphoma admitted May 25 with pain management of new spine fractures.? He was admitted, has large pleural effusions. right > than Left, had the right tapped 05/26 with 1 L removed. He had significant improvement in dyspnea. He was admitted 05/25 with spine fractures, and the effusions were seen on imaging of the spine. pleural fluid = pH >7.5, 190 wbc with 71% lymphocytes, > 2000 rbc. all the chemistries are pending. He started having abdominal pain and low back pain in January, has lost muscle mass and gained fluid with his weight staying stable. He was able to walk 2 miles a day and perform strength training several times a week, now does not exercise. CT abdomen/pelvis = lymphadenopathy suggestive of lymphoma. He has had some biopsies, nothing that is definitively diagnostic yet. Last Rodrigo he had a left supraclavicular LN excisional biopsy. After the biopsy, he had sudden pain in his low back with bending over, and had thigh weakness with tingling in right lower leg, making it impossible to walk.? CT of the thoracic and lumbar spine showed permeative lytic destruction of L1 and L4 vertebral bodies with pathologic burst fracture at L4, significant lymphadenopathy, and large bilateral pleural effusions. DATA * 05/27/23 MRI L spine: Enhancing marrow replacement consistent with lymphoma involving the majority of the L1 and L4 vertebral bodies and the left transverse process of L2 with extraosseous extension. 2. L4 pathologic burst fracture was 7 mm retropulsion contributing to moderate bilateral neural foraminal and mild central canal stenosis. 3. Bulky retroperitoneal lymphadenopathy consistent with lymphoma. 4. Lumbar spondylosis with multilevel mild facet osteoarthritis and severe disc height loss and mild to moderate facet osteoarthritis at L5-S1. Review of Systems Review of Systems: All systems reviewed & are unremarkable except as noted in HPI and below Exam Narrative: GEN: Alert, oriented, not in distress. He is on room air, saturation is 90-92% lying supine with a foam chest shell in place to stabilize his back. HEENT: pupils are equal, EOMI, symmetrical face; oral membranes moist NECK: Trachea is midline CHEST: Equal air entry, symmetric excursion, clear breath sounds on exam which is limited by the foam and plastic stabilizer. CV: Regular S1S2 no m/g/r ABD : (+) bowel sounds; abdomen is distended with fluid. Non tender. Extremities : no clubbing, cyanosis, or edema in legs. PSYCH: normal thought and speech, gait is not tested. Objective Data Vital Signs Vital Signs: Vital Signs - 24 hr 05/26/23 21:45 05/26/23 20:00 05/27/23 06:00 Temperature 37.2 C 36.6 C Pulse Rate 93 93 88 Respiratory Rat
[2023-05-27 17:46] VITALS: BP 125/67; PULSE 90; RESP 14; TEMP 36.7; O2SAT 94
--- NOTE | 2023-05-27 17:51 | WPDONCPN ---
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 Pathology report discussed with Dr. Marion today. It is diffuse large B-cell lymphoma [facility] type. High-grade B-cell lymphoma fish panel has been ordered. We will order port placement by Dr. Dobbs team. He will follow-up with us as an outpatient to initiate chemotherapy. Burst fracture of L4 and lytic lesion of L1 vertebral body. Will start him on Decadron 4 mg IV every 6 hours. He will discharge home on Decadron 4 mg t.i.d.. Bilateral pleural effusion status post right-sided thoracentesis. Discussed with Dr. Meadows. Plan is to perform left-sided thoracentesis as well. 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 Denies any night sweats fever chills. Denies any chest pain and breathing has improved after thoracentesis done yesterday. Exam Vital signs: Temp Pulse Resp BP Pulse Ox O2 Del Method 36.7 C 92 14 119/73 93 Room Air 05/27/23 14:00 05/27/23 14:00 05/27/23 14:00 05/27/23 14:00 05/27/23 14:00 05/27/23 08:00 Narrative: Lungs clear to auscultation with diminished breath sound in the left lung base Cardiovascular regular rate rhythm abdomen soft nontender nondistended bowel sounds are positive Extremities no edema PN: Objective Data - Labs CBC & Chem 7: 05/27/23 06:18 05/27/23 06:18 Labs: Laboratory Results - last 24 hr 05/26/23 05/27/23 15:45 06:18 WBC 9.8 RBC 4.36 L Hgb 11.9 L Hct 37.4 L MCV 85.8 MCH 27.3 MCHC 31.8 L RDW 13.7 Plt Count 421 H MPV 9.1 Immature Gran % (Auto) 0.4 Neut % (Auto) 77.8 H Lymph % (Auto) 7.8 L [place] % (Auto) 12.5 H Eos % (Auto) 1.2 Baso % (Auto) 0.3 Lymph # (Auto) 0.77 L [place] # (Auto) 1.2 H Eos # (Auto) 0.1 Baso # (Auto) 0.0 Abs Immat Gran (auto) 0.04 H Absolute Neuts (auto) 7.6 H Absolute Nucleated RBC 0.0 Nucleated RBC % 0.0 Sodium 139 Potassium 5.2 H Chloride 100 Carbon Dioxide 33 H Anion Gap 6 L BUN 28 H Creatinine 1.30 Estim Creat Clear Calc 60 Estimated GFR 56 L Glucose 97 Uric Acid 8.9 H Calcium 10.7 H Lactate Dehydrogenase 865 H Pleural pH > 7.500 H
[2023-05-27] MEDS: DEXAMETHASONE SOD PHOS INJ 4 MG/ML VIAL IV PUSH (18:00)
--- NOTE | 2023-05-27 18:21 | PC.NURSE ---
Pt went for MRI today. Pt tolerated well. Pt continues to have pain. Dilaudid helps the pain more than the norco. Pt to have thoracentesis tomorrow. Pt going NPO at midnight. Will continue to monitor pt.
[2023-05-27 21:46] VITALS: BP 138/65; PULSE 86; RESP 17; TEMP 37.1; O2SAT 90
[2023-05-28] MEDS: DEXAMETHASONE SOD PHOS INJ 4 MG/ML VIAL IV PUSH ×4 (00:10→17:45)
[2023-05-28] MEDS: HYDROmorphone HCL INJ (*CRX) 1 MG/ML SYR IV PUSH ×2 (00:12→12:25)
[2023-05-28 05:57] VITALS: BP 124/68; PULSE 79; RESP 12; TEMP 36.2; O2SAT 93
[2023-05-28 06:20] VITALS: O2SAT 94
[2023-05-28 07:13] LABS: Basophils Percent Auto 0.2 % (0.2-1.2); Hematocrit 38.8 % (42.0-52.0); Hemoglobin 12.3 g/dL (14.0-18.0); Immature Granulocyte Absolute 0.03 K/mm3 (0.00-0.031); Immature Granulocyte Percent A 0.5 % (0-0.5); Lymphocytes Absolute Auto 0.39 K/mm3 (0.9-3.2); Lymphocytes Percent Auto 6.1 % (18.3-44.2); Mean Corpuscular HGB Conc 31.7 g/dl (32-36); Mean Corpuscular Hemoglobin 26.7 pg (26-34); Mean Corpuscular Volume 84.3 fl (80-100); Mean Platelet Volume 8.8 fl (7.4-10.4); Monocytes Absolute Auto 0.3 K/mm3 (0.1-0.6); Monocytes Percent Auto 4.5 % (2.6-8.5); Neutrophils Absolute Auto 5.7 K/mm3 (1.3-6.7); Neutrophils Percent Auto 88.7 % (45.5-73.1); Platelet Count Result 431 k/mm3 (150-375); Red Cell Distribution Width 13.4 % (11.5-14.5); White Blood Count 6.4 K/mm3 (4.5-10.0)
[2023-05-28 07:44] LABS: Alanine Aminotransferase 81 U/L (6-50); Albumin Level 3.1 g/dL (3.5-5.1); Alkaline Phosphatase 134 U/L (38-126); Anion Gap 1 mmol/L (8-16); Aspartate Amino Transferase 93 U/L (17-59); Bilirubin,Total 0.5 mg/dL (0.2-1.3); Blood Urea Nitrogen 31 mg/dL (9-20); Calcium 10.4 mg/dL (8.4-10.2); Carbon Dioxide 35 mmol/L (22-30); Chloride 99 mmol/L (98-107); Estimated CRCL calculation 71 ml/min; Estimated Glomerular Filt Rate > 60; Glucose 123 mg/dL (65-110); Potassium 4.7 mmol/L (3.4-5.0); Sodium 135 mmol/L (137-145)
[2023-05-28 10:11] VITALS: BP 124/69
--- NOTE | 2023-05-28 10:29 | PM.CNGS ---
Assessment and Plan Assessment and plan (1) Lymphoma: Code(s): C85.90 - Non-Hodgkin lymphoma, unspecified, unspecified site Status: Acute Assessment and Plan: will setup for VAD placement prior to chemotherapy, likely early next week History of Present Illness Consult details Consult date: 05/28/23 Reason for consult: central line Requesting physician: Wilner Zuleta MD Narrative: The patient is a 63-year-old male with recently diagnosed diffuse large B-cell lymphoma stage IV. The patient now with a L4 burst fracture and lytic lesions noted in his lower vertebrae. The patient also with pleural effusions requiring thoracentesis. General surgery has been consulted for access for anticipated chemotherapy. Review of Systems Constitutional: Constitutional: Reports as per HPI, Reports anorexia, Reports body ache(s), Reports chills, Reports fatigue, Reports lethargy, Reports malaise, Reports night sweats, Reports poor appetite, Reports weakness and Reports weight loss Eyes: Eyes: Reports no additional eye complaints ENT: Reports system reviewed and no additional complaints, except as documented Cardiovascular: Cardiovascular: Reports no additional cardiovascular complaints Respiratory: Respiratory: Reports as per HPI, Reports dyspnea and Reports dyspnea on exertion Gastrointestinal: Gastrointestinal: Reports no additional gastrointestinal complaints Genitourinary: Genitourinary: Reports no additional male genitourinary complaints Musculoskeletal: Musculoskeletal: Reports as per HPI and Reports back pain Integumentary/Breasts: Skin/Breast: Reports system reviewed and no additional complaints, except as docu Neurologic: Reports system reviewed and no additional complaints, except as documented Psychiatric: Psychiatric: Reports no additional psychiatric complaints Endocrine: Endocrine: Reports no additional endocrine complaints Hematologic/Lymphatic: Hematologic/Lymphatic: Reports lymphadenopathy PMF Past Medical History Medical History Anxiety Vitreous detachment (2021) Surgical History Surgical History History of appendectomy (1971) History of rhinoplasty (1977) Family History Family History Father Cerebrovascular accident, Onset Age: 89 Patient's father is , Onset Age: 89 Mother Cerebrovascular accident, Onset Age: 87 Patient's mother is , Onset Age: 87 Hypertension Sibling Depression Social History Social History Social History: Surrogate medical decision maker: Racquel Bruno, spouse. Code status: Full code. Smoking status: Never smoker Second hand tobacco smoke exposure: No Alcohol intake: former Alcohol use details: 2 PER MONTH Substance use: never Substance use type: does not use Lack of Transportation: No Lack of Food: Never True Current Housing: I Have Housing Concerned About Future Housing: No Difficulty Paying Gas/Electric Bills: No Difficulty Paying for Meds: No Currently Unemployed: No Education: Master's Degree or Higher Difficulty w/ Childcare or Family Care: No Living arrangements: with family Additional living arrangements comments: , lives in [place] with spouse. 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 Spiritual care concerns: No Meds Home Medications and Allergies Home Medications Medication Instructions Recorded Confirmed Type multivitamin (Daily Multi-Vitamin 1 tablet PO DAILY 10/25/22 05/25/23 History tablet) venlafaxine 37.5 mg See Rx Instructions .Route 03/14/23 05/25/23 Rx capsule,extended release 24 hr .COMPLEX #90 caps acetaminophen 500 mg capsule 500 mg PO Q6H 03/23/23 05/25/23 History tramadol 50 m
[2023-05-28] MEDS: VENLAFAXINE HCL XR 37.5 MG CAP BY MOUTH (12:26)
[2023-05-28 14:00] VITALS: BP 135/69; PULSE 76; RESP 16; TEMP 36.7; O2SAT 98
--- NOTE | 2023-05-28 14:32 | PM.IMPN ---
Progress Note: A&P Assessment and Plan (1) Burst fracture of lumbar vertebra: Code(s): S32.001A - Stable burst fracture of unspecified lumbar vertebra, initial encounter for closed fracture Status: Acute (2) Lymphoma: Code(s): C85.90 - Non-Hodgkin lymphoma, unspecified, unspecified site Status: Acute (3) Elevated LFTs: Code(s): R79.89 - Other specified abnormal findings of blood chemistry Status: Acute (4) Bilateral pleural effusion: Code(s): J90 - Pleural effusion, not elsewhere classified Status: Acute Plan Low back pain The patient presented to emergency department from home for evaluation of back pain as per HPI. Labs, imaging, EKG, and all reports were personally reviewed. CT of the thoracic and lumbar spine shows lytic lesions at L1 and L4 with a pathologic burst fracture of L4. Analgesics available as needed. Dr. Marin has been consulted and her input is greatly appreciated. [facility] pain [facility] MR reports 1. Enhancing marrow replacement consistent with lymphoma involving the majority of the L1 and L4 vertebral bodies and the left transverse process of L2 with extraosseous extension. 2. L4 pathologic burst fracture was 7 mm retropulsion contributing to moderate bilateral neural foraminal and mild central canal stenosis. 3. Bulky retroperitoneal lymphadenopathy consistent with lymphoma. 4. Lumbar spondylosis with multilevel mild facet osteoarthritis and severe disc height loss and mild to moderate facet osteoarthritis at L5-S1. Patient was able move to stretcher from bed by himself for MR No surgical indication the small Patient received dexamethasone IV, pain is better controlled Suspected lymphoma Multiple side of lymph node enlargement Biopsy of left supraclavicular lymph node, report pending Consult Heme-Onc for evaluation treatment, Bilateral pleural effusion possible due to lymphoma CT shows large bilateral pleural effusions Consult director market research for evaluation and treatment Stable post therapeutic thoracentesis. Short of breath is improving LFTs are a bit elevated there is a small amount of ascites on CT, possibly related to the lymphoma Patient has epigastric pain and right upper quadrant pain No sign of SBP Subjective Date/time seen: 05/28/23 14:32 Interval history: I saw and examined patient today, patient feels pain is improving on dexamethasone IV. Patient denies focal weakness, urinary fecal incontinence, no new issue went over the night. Exam Narrative: GENERAL: Pleasant, in no acute distress. Well-nourished. - EYES: EOMI. Anicteric. - HENT: Moist mucous membranes. - LUNGS: Diminished breath some bilaterally, no wheezing, rhonchi, or rales. - CARDIOVASCULAR: Regular rate and rhythm. No murmur. No JVD. - ABDOMEN: Soft, non-tender and non-distended. No palpable masses. - EXTREMITIES: No edema. Peripheral pulses 2+. Non-tender. -neuromuscular examination: No focal neurological deficits. CN II-XII grossly intact. Low vest backer by percussion - PSYCHIATRIC: Awake, Alert and oriented x 3. Appropriate mood and affect. - SKIN: No rashes or lesions. Warm. - LYMPH: No cervical lymphadenopathy. Objective Data Vital Signs Vital Signs: Vital Signs - 24 hr 05/27/23 17:46 05/27/23 21:46 05/28/23 05:57 Temperature 98.0 F 98.8 F 97.1 F L Pulse Rate 90 86 79 Respiratory Rate 14 17 12 Blood Pressure 125/67 138/65 124/68 Pulse Oximetry 94 90 93 Oxygen Delivery 05/28/23 06:20 05/28/23 08:00 05/28/23 10:11 Temperature Pulse Rate Respiratory Rate Blood Pressure 124/69 Pulse Oximetry 94 Oxygen Delivery Room Air Room Air 05/28/23 14:00 Temperature 98.1 F Pulse Rate 76 Respiratory Rate 16 Blood Pressure 135/69 Pulse Oximetry 98 Oxygen Delivery Intake/Output Intake/Output: Intake & Output 05/25/23 05/26/23 05/27/23 05/28/23 23:59 23:59 23:59 23:59 Intake Total 1246 1530 550 Output Total 222
[2023-05-28] MEDS: oxyCODONE/ACETAMINOPHEN (*CRX) 5-325 MG TABLET 1 TABLET PO (20:12)
[2023-05-28 22:00] VITALS: BP 132/82; PULSE 93; RESP 16; TEMP 36.9; O2SAT 94
[2023-05-29] MEDS: DEXAMETHASONE SOD PHOS INJ 4 MG/ML VIAL IV PUSH ×4 (00:04→17:06)
[2023-05-29] MEDS: oxyCODONE/ACETAMINOPHEN (*CRX) 10-325 MG TABLET 1 TAB PO ×3 (01:30→22:36)
[2023-05-29 01:32] VITALS: BP 116/72; PULSE 72
[2023-05-29 06:00] VITALS: BP 130/72; PULSE 70; RESP 16; TEMP 36.5; O2SAT 96
[2023-05-29] MEDS: SENNA/DOCUSATE SODIUM TABLET 1 TAB PO ×2 (08:26→17:06)
--- NOTE | 2023-05-29 10:18 | PM.PNGS ---
Progress Note: A&P Assessment and Plan (1) Lymphoma: Code(s): C85.90 - Non-Hodgkin lymphoma, unspecified, unspecified site Status: Acute Assessment and Plan: will setup for placement of VAD tomorrow in OR Subjective Subjective Date/Time Seen: 05/29/23 10:18 Interval history: no acute issues, thoracentesis yesterday Review of Systems Review of Systems: All systems reviewed & are unremarkable except as noted in HPI and below Exam Const: General: cooperative, comfortable and no acute distress Chest: Chest palpation & inspection: normal inspection of the chest Resp: Auscultation: diminished lung sounds Cardio: Rate: regular rate Rhythm: regular rhythm GI: Inspection: normal to inspection Objective Data Vital Signs Vital Signs: Vital Signs - 24 hr 05/28/23 14:00 05/28/23 22:00 05/29/23 01:32 Temperature 36.7 C 36.9 C Pulse Rate 76 93 72 Respiratory Rate 16 16 Blood Pressure 135/69 132/82 116/72 Pulse Oximetry 98 94 Oxygen Delivery 05/29/23 06:00 05/29/23 08:25 Temperature 36.5 C Pulse Rate 70 Respiratory Rate 16 Blood Pressure 130/72 Pulse Oximetry 96 Oxygen Delivery Room Air Intake/Output Intake/Output: Intake & Output 05/26/23 05/27/23 05/28/23 05/29/23 23:59 23:59 23:59 23:59 Intake Total 1246 1530 790 610 Output Total 2225 800 2050 650 Balance -979 730 -1260 -40 Meds/Results Medications: Active Medications Generic Name Dose Route Start Last Admin Trade Name Ramosq PRN Reason Stop Dose Admin Acetaminophen 650 mg 05/25/23 22:31 Acetaminophen 325 Mg Tablet PO Q6H PRN Mild Pain (1-3) or Fever Hydrocodone Bitart/Acetaminophen 1 tab 05/25/23 22:12 05/27/23 03:46 Hydrocodone/Acetaminophen (*Crx) 5-325 Mg Tablet PO 1 tab Q4H PRN Administration Pain Rated 4-6 Dexamethasone Sodium Phosphate 4 mg 05/27/23 18:00 05/29/23 06:12 Dexamethasone Sod Phos Inj 4 Mg/Ml Vial IV PUSH 4 mg Q6HR TIFFANIE Administration Hydromorphone HCl 1 mg 05/25/23 22:12 05/28/23 12:25 Hydromorphone Hcl Inj (*Crx) 1 Mg/Ml Syr IV PUSH 1 mg Q3H PRN Administration Pain Rated 7-10 Multivitamins Therapeutic 1 tablet 05/26/23 09:00 05/29/23 07:18 Multivitamins Therapeutic Tab (*Bkc) PO Not Given DAILY TIFFANIE Polyethylene Glycol 17 gm 05/26/23 09:00 05/29/23 08:26 Polyethylene Glycol 3350 17 Gm Powd.Pack PO Not Given DAILY TIFFANIE Senna/Docusate Sodium 1 tab 05/29/23 09:00 05/29/23 08:26 Senna/Docusate Sodium Tablet PO 1 tab BID TIFFANIE Administration Venlafaxine HCl 37.5 mg 05/26/23 09:00 05/28/23 12:26 Venlafaxine Hcl Xr 37.5 Mg Cap BY MOUTH 37.5 mg Q48H TIFFANIE Administration Radiology Results: ITS Impressions Thoracic/Lumbar Spine CT 05/25/23 15:05 IMPRESSION: Permeative lytic destruction of L1 vertebral body More extensive permeative lytic destruction and pathologic burst fracture of L4; differential diagnosis includes metastatic disease, multiple myeloma, lymphoma Probable chronic T8 mild anterior wedging Periaortic, aortocaval, retrocrural lymphadenopathy Large bilateral pleural effusions, mild ascites Bilateral lower lobe atelectasis Lumbar Spine MRI 05/27/23 10:10 IMPRESSION: 1. Enhancing marrow replacement consistent with lymphoma involving the majority of the L1 and L4 vertebral bodies and the left transverse process of L2 with extraosseous extension. 2. L4 pathologic burst fracture was 7 mm retropulsion contributing to moderate bilateral neural foraminal and mild central canal stenosis. 3. Bulky retroperitoneal lymphadenopathy consistent with lymphoma. 4. Lumbar spondylosis with multilevel mild facet osteoarthritis and severe disc height loss and mild to moderate facet osteoarthritis at L5-S1. Chest X-Ray 05/28/23 10:13 IMPRESSION: 1. Worsened moderate-sized right pleural effusion. 2. Mild atelectasis in left midlung zone. Thoracentesis Ultrasound 05/28/23
--- NOTE | 2023-05-29 10:49 | PM.IMPN ---
Progress Note: A&P Assessment and Plan (1) Burst fracture of lumbar vertebra: Code(s): S32.001A - Stable burst fracture of unspecified lumbar vertebra, initial encounter for closed fracture Status: Acute (2) Lymphoma: Code(s): C85.90 - Non-Hodgkin lymphoma, unspecified, unspecified site Status: Acute (3) Elevated LFTs: Code(s): R79.89 - Other specified abnormal findings of blood chemistry Status: Acute (4) Bilateral pleural effusion: Code(s): J90 - Pleural effusion, not elsewhere classified Status: Acute Plan Low back pain The patient presented to emergency department from home for evaluation of back pain as per HPI. Labs, imaging, EKG, and all reports were personally reviewed. CT of the thoracic and lumbar spine shows lytic lesions at L1 and L4 with a pathologic burst fracture of L4. Analgesics available as needed. Dr. Marin has been consulted and her input is greatly appreciated. [facility] MR reports 1. Enhancing marrow replacement consistent with lymphoma involving the majority of the L1 and L4 vertebral bodies and the left transverse process of L2 with extraosseous extension. 2. L4 pathologic burst fracture was 7 mm retropulsion contributing to moderate bilateral neural foraminal and mild central canal stenosis. 3. Bulky retroperitoneal lymphadenopathy consistent with lymphoma. 4. Lumbar spondylosis with multilevel mild facet osteoarthritis and severe disc height loss and mild to moderate facet osteoarthritis at L5-S1. Patient was able move to stretcher from bed by himself for MR No surgical indication the small Patient received dexamethasone IV, Paste not well controlled [facility] medication for better pain management Suspected lymphoma Multiple side of lymph node enlargement Biopsy of left supraclavicular lymph node, report pending Consult Heme-Onc for evaluation treatment, Per pain will be placed, Bilateral pleural effusion possible due to lymphoma CT shows large bilateral pleural effusions Consult reading specialist for evaluation and treatment Stable post therapeutic thoracentesis of bilateral chest Short of breath is improving LFTs are a bit elevated there is a small amount of ascites on CT, possibly related to the lymphoma Patient has epigastric pain and right upper quadrant pain No sign of SBP Subjective Date/time seen: 05/29/23 10:49 Interval history: I saw and examined patient today, patient feels pain is not well controlled worse with movement. Patient denies focal weakness, urinary fecal incontinence, no new issue went over the night. Exam Narrative: GENERAL: Pleasant, in no acute distress. Well-nourished. - EYES: EOMI. Anicteric. - HENT: Moist mucous membranes. - LUNGS: Diminished breath some bilaterally, no wheezing, rhonchi, or rales. - CARDIOVASCULAR: Regular rate and rhythm. No murmur. No JVD. - ABDOMEN: Soft, non-tender and non-distended. No palpable masses. - EXTREMITIES: No edema. Peripheral pulses 2+. Non-tender. -neuromuscular examination: No focal neurological deficits. CN II-XII grossly intact. Low back tender paper machine by percussion - PSYCHIATRIC: Awake, Alert and oriented x 3. Appropriate mood and affect. - SKIN: No rashes or lesions. Warm. - LYMPH: No cervical lymphadenopathy. Objective Data Vital Signs Vital Signs: Vital Signs - 24 hr 05/28/23 14:00 05/28/23 22:00 05/29/23 01:32 Temperature 98.1 F 98.4 F Pulse Rate 76 93 72 Respiratory Rate 16 16 Blood Pressure 135/69 132/82 116/72 Pulse Oximetry 98 94 Oxygen Delivery 05/29/23 06:00 05/29/23 08:25 Temperature 97.7 F Pulse Rate 70 Respiratory Rate 16 Blood Pressure 130/72 Pulse Oximetry 96 Oxygen Delivery Room Air Intake/Output Intake/Output: Intake & Output 05/26/23 05/27/23 05/28/23 05/29/23 23:59 23:59 23:59 23:59 Intake Total 1246 1530 790 610 Output Total 2225 800 2050 1210 [facility] -979 730 -1260 -600 Meds/Results
[2023-05-29 14:00] VITALS: BP 122/81; PULSE 102; RESP 16; TEMP 36.8; O2SAT 94
[2023-05-29 20:52] VITALS: BP 126/76; PULSE 73; RESP 14; TEMP 35.6; O2SAT 94
[2023-05-30] MEDS: DEXAMETHASONE SOD PHOS INJ 4 MG/ML VIAL IV PUSH ×3 (00:15→12:14)
[2023-05-30 06:00] VITALS: BP 120/70; PULSE 64; RESP 16; TEMP 36.4; O2SAT 95
[2023-05-30] MEDS: VENLAFAXINE HCL XR 37.5 MG CAP BY MOUTH (07:21)
[2023-05-30] MEDS: SENNA/DOCUSATE SODIUM TABLET 1 TAB PO (07:21)
[2023-05-30 08:22] LABS: Basophils Percent Auto 0.1 % (0.2-1.2); Hematocrit 39.2 % (42.0-52.0); Hemoglobin 12.4 g/dL (14.0-18.0); Immature Granulocyte Absolute 0.09 K/mm3 (0.00-0.031); Immature Granulocyte Percent A 0.7 % (0-0.5); Lymphocytes Absolute Auto 0.53 K/mm3 (0.9-3.2); Mean Corpuscular HGB Conc 31.6 g/dl (32-36); Mean Corpuscular Hemoglobin 27.2 pg (26-34); Monocytes Absolute Auto 0.6 K/mm3 (0.1-0.6); Monocytes Percent Auto 4.6 % (2.6-8.5); Neutrophils Absolute Auto 12.2 K/mm3 (1.3-6.7); Neutrophils Percent Auto 90.6 % (45.5-73.1); Platelet Count Result 427 k/mm3 (150-375); Red Blood Count 4.56 M/mm3 (4.6-6.20); Red Cell Distribution Width 13.7 % (11.5-14.5); White Blood Count 13.4 K/mm3 (4.5-10.0)
[2023-05-30 08:34] LABS: Anion Gap -1 mmol/L (8-16); Blood Urea Nitrogen 41 mg/dL (9-20); Calcium 9.5 mg/dL (8.4-10.2); Carbon Dioxide 35 mmol/L (22-30); Chloride 104 mmol/L (98-107); Estimated CRCL calculation 71 ml/min; Estimated Glomerular Filt Rate > 60; Glucose 120 mg/dL (65-110); Potassium 4.7 mmol/L (3.4-5.0); Sodium 138 mmol/L (137-145)
--- NOTE | 2023-05-30 09:22 | PM.PNPUL ---
Progress Note: A&P Assessment and Plan (1) Bilateral pleural effusion: Code(s): J90 - Pleural effusion, not elsewhere classified Status: Acute Assessment and Plan: He had 1 L removed yesterday from right side May 26 with relief in dyspnea. pH >7.5, red blood cells & lymphocytic predominance consistent with lymphoma. 1 L milky fluid removed MayMay 28 from left side. 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 The fluid appeared more white and nilky, not clear yellow. May 26 post thoracentesis CXR after 1 L removed from RIGHT May 26 after 1 L off the RIGHT This is the May 28 CXR after thoracentesis after 1 L milky fluid removed from the LEFT May 28 after 1 L off the LEFT The right side now appears worse,may be dueto chylous effusion. 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 He may need higher level services such as a repeat tap, more labs to confirm and a chest tube. I contacted Dr Zuleta and I spoke with Dr Galo.. Dr Galo is not going to place the port today. I spoke with Dr Diaz about these issues. Subjective Date/time seen: 05/30/23 09:22 Interval history: hospital follow up : Rickey Bruno is a 63-year-old man with B-cell lymphoma admitted May 25 with pain management of new spine fractures.? He was admitted, has large pleural effusions. right > than Left, had the right tapped 05/26 with 1 L removed. He had significant improvement in dyspnea. He was admitted 05/25 with spine fractures, and the effusions were seen on imaging of the spine. pleural fluid = pH >7.5, 190 wbc with 71% lymphocytes, < 2000 rbc. 05/30/23 He feels better, was able to walk in the halls and has less pain. He felt better after thoracentesis Tuesday with removal of 1 L milky fluid on left side. I requested a pH, not performed. I did not request other labs on second tap. He is on room air. WBC is higher, 13.4. No fever, no distress. The pH was not performed on thoracentesis fluid from Tuesday. 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 HISTORY= = = = He started having abdominal pain and low back pain in January, has lost muscle mass and gained fluid with his weight staying stable. He was able to walk 2 miles a day and perform strength training several times a week, now does not exercise. CT abdomen/pelvis = lymphadenopathy suggestive of lymphoma. He has had some biopsies, now confirmed B cell lymphoma. May 20Tuesday had a left supraclavicular LN excisional biopsy. After the biopsy, he had sudden pain in his low back with bending over, and had thigh weakness with tingling in right lower leg, making it impossible to walk.? CT of the thoracic and lumbar spine showed permeative lytic destruction of L1 and L4 vertebral bodies with pathologic burst fracture at L4, significant lymphadenopathy, and large bilateral pleural effusions. DATA * 05/27/23 MRI L spine: Enhancing marrow replacement consistent with lymphoma involving the majority of the L1 and L4 vertebral bodies and the left transverse process of L2 with extraosseous extension. 2. L4 pathologic burst fracture was 7 mm retropulsion contributing to moderate bilateral neural foraminal and mild central canal stenosis. 3. Bulky retroperitoneal lymphadenopathy consistent with lymphoma. 4. Lumbar spondylosis with multilevel mild facet osteoarthritis and severe disc height loss and mild to moderate facet osteoarthritis at L5-S1. Review of Systems Review of Systems: All systems reviewed & are unremarkable except as noted in HPI and below Exam Narrative: GEN: Alert, oriented, not in distress. He is on room air, saturation is HEENT: pupils are equal, EOMI, symmetrical face; oral membranes moist NECK: Trachea is midline CHEST: Equal air entry, symmetric excursion, equal breath sounds with good air entry anteriorly. CV: Regular S1S2 no m/g/r ABD : (+) bowel sounds; abdomen is distended with fluid.
--- NOTE | 2023-05-30 09:53 | PCOTNOTE ---
Attempted to see Patient for OT treatment session. Patient declined, stating he is having surgery today to have a port placed and feels comfortable with OT services . Patient has been educated on adaptive equipment and will have his perform ADL tasks if assistance is needed.
--- NOTE | 2023-05-30 11:07 | PM.IMPN ---
Progress Note: A&P Assessment and Plan (1) Burst fracture of lumbar vertebra: Code(s): S32.001A - Stable burst fracture of unspecified lumbar vertebra, initial encounter for closed fracture Status: Acute (2) Lymphoma: Code(s): C85.90 - Non-Hodgkin lymphoma, unspecified, unspecified site Status: Acute (3) Elevated LFTs: Code(s): R79.89 - Other specified abnormal findings of blood chemistry Status: Acute (4) Bilateral pleural effusion: Code(s): J90 - Pleural effusion, not elsewhere classified Status: Acute Plan Low back pain The patient presented to emergency department from home for evaluation of back pain as per HPI. Labs, imaging, EKG, and all reports were personally reviewed. CT of the thoracic and lumbar spine shows lytic lesions at L1 and L4 with a pathologic burst fracture of L4. Analgesics available as needed. Dr. Marin has been consulted and her input is greatly appreciated. [facility] MR reports 1. Enhancing marrow replacement consistent with lymphoma involving the majority of the L1 and L4 vertebral bodies and the left transverse process of L2 with extraosseous extension. 2. L4 pathologic burst fracture was 7 mm retropulsion contributing to moderate bilateral neural foraminal and mild central canal stenosis. 3. Bulky retroperitoneal lymphadenopathy consistent with lymphoma. 4. Lumbar spondylosis with multilevel mild facet osteoarthritis and severe disc height loss and mild to moderate facet osteoarthritis at L5-S1. Patient was able move to stretcher from bed by himself for MR No surgical indication the small Patient received dexamethasone IV, Paste not well controlled [facility] medication for better pain management Suspected lymphoma Multiple side of lymph node enlargement Biopsy of left supraclavicular lymph node, report pending Consult Heme-Onc for evaluation treatment, Per pain will be placed, Bilateral pleural effusion possible due to lymphoma CT shows large bilateral pleural effusions Consult entry writer for evaluation and treatment Stable post therapeutic thoracentesis of bilateral chest Short of breath is improving Rental Clerk considers that he has a chylous effusion from lymphoma, and pt needs to be transferred to higher level. pt prefers to be transferred to [facility]. Patient is accepted by [facility] LFTs are a bit elevated there is a small amount of ascites on CT, possibly related to the lymphoma Patient has epigastric pain and right upper quadrant pain No sign of SBP Subjective Date/time seen: 05/30/23 11:07 Interval history: Patient feels better today, pain is controlled, no significant dyspnea. Patient also denies focal weakness, urinary fecal incontinence. Patient also denies fever, chills, abdomen pain, nausea vomiting diarrhea constipation Exam Narrative: GENERAL: Pleasant, in no acute distress. Well-nourished. - EYES: EOMI. Anicteric. - HENT: Moist mucous membranes. - LUNGS: Diminished breath some bilaterally, no wheezing, rhonchi, or rales. - CARDIOVASCULAR: Regular rate and rhythm. No murmur. No JVD. - ABDOMEN: Soft, non-tender and non-distended. No palpable masses. - EXTREMITIES: No edema. Peripheral pulses 2+. Non-tender. -neuromuscular examination: No focal neurological deficits. CN II-XII grossly intact. Low back closer by percussion - PSYCHIATRIC: Awake, Alert and oriented x 3. Appropriate mood and affect. - SKIN: No rashes or lesions. Warm. - LYMPH: No cervical lymphadenopathy. Objective Data Vital Signs Vital Signs: Vital Signs - 24 hr 05/29/23 14:00 05/29/23 20:52 05/30/23 06:00 Temperature 98.3 F 96.1 F L 97.6 F Pulse Rate 102 H 73 64 Respiratory Rate 16 14 16 Blood Pressure 122/81 126/76 120/70 Pulse Oximetry 94 94 95 Oxygen Delivery 05/30/23 07:20 Temperature Pulse Rate Respiratory Rate Blood Pressure Pulse Oximetry Oxygen Delivery Room Air Intake/O
--- NOTE | 2023-05-30 11:33 | PM.DS ---
DS: Admitting Diagnosis Discharge Date today Admitting Diagnosis (1) Burst fracture of lumbar vertebra: ?Code(s): S32.001A - Stable burst fracture of unspecified lumbar vertebra, initial encounter for closed fracture ?Status:?Acute (2) Lymphoma: ?Code(s): C85.90 - Non-Hodgkin lymphoma, unspecified, unspecified site ?Status:?Acute (3) Elevated LFTs: ?Code(s): R79.89 - Other specified abnormal findings of blood chemistry ?Status:?Acute (4) Bilateral pleural effusion: ?Code(s): J90 - Pleural effusion, not elsewhere classified ?Status:?Acute DS: Summary Hospital Course Reason for hospitalization: Back pain Hospital Course: Per H&P. This is a very pleasant 63-year-old male who has been quite healthy up until this point who presented to the emergency department via private vehicle from home for evaluation of back pain. The patient provides the following history. Towards the end of January he developed vague abdominal discomfort and low back pain which initially he thought was due to moving furniture. He saw his doctor on February 16 and at that time his exam was benign and management with expectant. His symptoms persisted and in fact worsened and he saw his doctor again on March [address] of the abdomen and pelvis was ordered which unfortunately showed extensive lymphadenopathy suspicious for lymphoma. He had a CT-guided periaortic lymph node biopsy on April 19 which was insufficient for flow cytometric analysis however pathology did show atypical lymphoid infiltrate suspicious for B-cell lymphoma. Last Tuesday he had several lymph nodes excised from the left supraclavicular region and we are still awaiting those results. The day after that procedure he bent over and reports hearing several pops in his low back followed by severe pain and weakness in the lower legs. He has been taking ibuprofen and acetaminophen at home without much relief. His activity is limited due to the pain and he has not been able to do much and in fact today he could hardly ambulate. CT of the thoracic and lumbar spine showed permeative lytic destruction of L1 and L4 vertebral bodies with pathologic burst fracture at L4, significant lymphadenopathy, and large bilateral pleural effusions. He is being admitted in this setting for pain control neurosurgery consultation. He has sweats but no fever. Appetite has been poor and he reports having lost quite a bit of muscle mass over the last couple of months. He denies chest and pleuritic pain. He is feeling short of breath with exertion and somewhat when lying flat. No urinary retention or bowel incontinence. He denies saddle anesthesia. No significant numbness of the lower extremities but he does have some paresthesias in a small patch of the left leg. The follow medical issues have been addressed in the hospital Low back pain The patient presented to emergency department from home for evaluation of back pain as per HPI. Labs, imaging, EKG, and all reports were personally reviewed. CT of the thoracic and lumbar spine shows lytic lesions at L1 and L4 with a pathologic burst fracture of L4. Analgesics available as needed. Dr. Marin has been consulted and her input is greatly appreciated. [facility] pain management MR reports 1. Enhancing marrow replacement consistent with lymphoma involving the majority of the L1 and L4 vertebral bodies and the left transverse process of L2 with extraosseous extension. 2. L4 pathologic burst fracture was 7 mm retropulsion contributing to moderate bilateral neural foraminal and mild central canal stenosis. 3. Bulky retroperitoneal lymphadenopathy consistent with lymphoma. 4. Lumbar spondylosis with multilevel mild facet osteoarthritis and severe disc height loss and mild to moderate facet osteoarthritis at L5-S1. Patient was able move to stretcher from bed by himself for MR No surgical indication the small Patient received dexamethasone IV, Pain is better controlled. [facility]imize me
[2023-05-30] MEDS: oxyCODONE/ACETAMINOPHEN (*CRX) 10-325 MG TABLET 1 TAB PO (12:14)
[2023-05-31 03:45] LABS: Glucose Pleural Fluid 102 mg/dL; LDH Pleural Fluid 294 U/L; Total Protein Pleural Fluid 3.7 g/dL
== END 2023-05-30 15:31 | disposition short-term general hospital (02) | DRG 841 ==
LOC: ANHED 16:23 → ANH3MEDSUR 17:26
PROVIDERS: Internal Medicine Critical Care Medicine; Physician Assistant; Admitting Provider Family Medicine; Emergency Provider Emergency Medicine; PCP Internal Medicine; Visit Provider Hospitalist
DX: C83.30 Diffuse large B-cell lymphoma, unspecified site (principal); J91.0 Malignant pleural effusion; M84.48XA Pathological fracture, other site, initial encounter for fracture; R18.8 Other ascites; F41.9 Anxiety disorder, unspecified; Z90.49 Acquired absence of other specified parts of digestive tract; R79.89 Other specified abnormal findings of blood chemistry
CPT/HCPCS: 32555; 36415; 71045; 72128; 72131; 72158; 80048; 80053; 82945; 83615; 83735; 83986; 84100; 84157; 84311; 84550; 85025; 85027; 85610; 85730; 87015; 87070; 87075; 87102; 87116; 87205; 87206; 88108; 88184; 88305; 89051; 94762; 96374; 96376; 97116; 97161; 97165; 97530; 97535; 99285; A9270; A9577; G0378; J1100; J1170